=== PATIENT | female | born 2005 | race Caucasian/White ===

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

== ENCOUNTER 2025-10-12 01:25 | Emergency (ER) | payer BC, MEDICAID, SELFPAY ==
[2025-10-12 01:29] VITALS: BP 150/87; PULSE 87; RESP 18; TEMP 36.8; O2SAT 100; BMI 38.6
--- OUTSIDE RECORDS SUMMARY | 2025-10-12 01:32 | XMS_ITS | Encounter Summary ---
Author Organization [facility] Address [address] [place] [address] Care Team Providers Care Rotating Equipment Engineer Name Role Phone Erin William PROJECT DEVELOPMENT DIRECTOR Primary Care Provider [phone] Encounter Details Date Type Department Care Team (Latest Contact Info) Description 04/11/2007 Outpatient Historical [facility] Pediatrics-[place] [address] [place] [address] Db Saez MD [address] [place] [address] Vomiting Alone (Primary Dx) Social History Tobacco Use Types Packs/Day Years Used Date Smoking Tobacco: Never Assessed Comments Unknown Sex and Gender Information Value Date Recorded Sex Assigned at Not on file Legal Sex Female 5:39 AM CIAIO LUMITE INJECTOR Gender Identity Not on file Sexual Orientation Not on file documented as of this encounter Plan of Treatment Not on file documented as of this encounter Visit Diagnoses Diagnosis Vomiting alone- Primary documented in this encounter Care Teams Rotating Equipment Engineer Relationship Specialty Start Date End Date Erin William NP [address] [place] [address] PCP - General Nurse Practitioner Family 12/01/20 documented as of this encounter
--- OUTSIDE RECORDS SUMMARY | 2025-10-12 01:32 | XMS_ITS | Encounter Summary ---
Author Organization [facility] Address [address] [place] [address] Care Team Providers Care Junior Project Coordinator Name Role Phone Erin William CASTING MACHINE OPERATOR AUTOMATIC Primary Care Provider [phone] Encounter Details Date Type Department Care Team (Latest Contact Info) Description 06/14/2006 Outpatient Historical [facility] Pediatrics-[place] [address] [place] [address] Db Saez MD [address] [place] [address] Routine Child Health Exam (Primary Dx); Other Infants, Unspecified (Weight) Social History Tobacco Use Types Packs/Day Years Used Date Smoking Tobacco: Never Assessed Comments Unknown Sex and Gender Information Value Date Recorded Sex Assigned at Not on file Legal Sex Female 5:39 AM VENEER MATCHER Gender Identity Not on file Sexual Orientation Not on file documented as of this encounter Plan of Treatment Not on file documented as of this encounter Visit Diagnoses Diagnosis Routine child health exam- Primary Routine infant or child health check Other infants, unspecified (weight)(765.10) Other infants, unspecified (weight) documented in this encounter Care Teams Junior Project Coordinator Relationship Specialty Start Date End Date Erin William NP [address] [place] [address] PCP - General Nurse Practitioner Family 12/01/20 documented as of this encounter
--- OUTSIDE RECORDS SUMMARY | 2025-10-12 01:32 | XMS_ITS | Encounter Summary ---
Author Organization [facility] Address [address] [place] [address] Care Team Providers Care Diplomatic Interpreter Name Role Phone Erin William MARKET NEWS REPORTER Primary Care Provider [phone] Encounter Details Date Type Department Care Team (Latest Contact Info) Description 04/17/2006 Outpatient Historical [facility] Pediatrics-[place] [address] [place] [address] Db Saez MD [address] [place] [address] Unspecified Dacryocystitis (Primary Dx) Social History Tobacco Use Types Packs/Day Years Used Date Smoking Tobacco: Never Assessed Comments Unknown Sex and Gender Information Value Date Recorded Sex Assigned at Not on file Legal Sex Female 5:39 AM ELECTRICAL ENGINEERING INTERN Gender Identity Not on file Sexual Orientation Not on file documented as of this encounter Plan of Treatment Not on file documented as of this encounter Visit Diagnoses Diagnosis Dacryocystitis, unspecified- Primary documented in this encounter Care Teams Diplomatic Interpreter Relationship Specialty Start Date End Date Erin William NP [address] [place] [address] PCP - General Nurse Practitioner Family 12/01/20 documented as of this encounter
--- OUTSIDE RECORDS SUMMARY | 2025-10-12 01:32 | XMS_ITS | Encounter Summary ---
Author Organization [facility] Address [address] [place] [address] Care Team Providers Care District Administrator Name Role Phone Erin William GLASS VIAL FILLER Primary Care Provider Encounter Details Date Type Department Care Team (Latest Contact Info) Description 2005 Outpatient Historical [facility] [place] [address] [place] [address] Db Saez MD [address] [place] [address] Routine child health exam (Primary Dx); INFANT NEC WTNOS; BONE/SKIN NEOPLASM NOS; UNDIAGNOSED CARDIAC MURMURS Social History Tobacco Use Types Packs/Day Years Used Date Smoking Tobacco: Never Assessed Comments Unknown Sex and Gender Information Value Date Recorded Sex Assigned at Not on file Legal Sex Female 5:39 AM NETWORK CONTROL OPERATOR Gender Identity Not on file Sexual Orientation Not on file documented as of this encounter Plan of Treatment Not on file documented as of this encounter Visit Diagnoses Diagnosis Routine child health exam- Primary Routine or child health check Other infants, unspecified (weight)(765.10) Other infants, unspecified (weight) Neoplasm of unspecified nature of bone, soft tissue, and skin Undiagnosed cardiac murmurs documented in this encounter Care Teams District Administrator Relationship Specialty Start Date End Date Erin William NP [address] [place] [address] PCP - General Nurse Practitioner Family 12/01/20 documented as of this encounter
--- OUTSIDE RECORDS SUMMARY | 2025-10-12 01:32 | XMS_ITS | Encounter Summary ---
Author Organization [facility] Address [address] [place] [address] Care Team Providers Care Optometrist President/Practice Owner Name Role Phone Erin William FURNITURE MANAGER Primary Care Provider [phone] Encounter Details Date Type Department Care Team (Late st Contact Info) Description 10/15/2006 Outpatient Historical [facility] [address] [place] [address] Brock Wilkerson, DO [address] [place] [address] Unspecified Otitis Media (Primary Dx); Acute Upper Respiratory Infections of Unspecified Site Social History Tobacco Use Types Packs/Day Years Used Date Smoking Tobacco: Never Assessed Comments Unknown Sex and Gender Information Value Date Recorded Sex Assigned at Not on file Legal Sex Female 5:39 AM OXIDATION ENGINEER Gender Identity Not on file Sexual Orientation Not on file documented as of this encounter Plan of Treatment Not on file documented as of this encounter Visit Diagnoses Diagnosis Unspecified otitis media- Primary Acute upper respiratory infections of unspecified site documented in this encounter Care Teams Optometrist President/Practice Owner Relationship Specialty Start Date End Date Erin William NP [address] [place] [address] PCP - General Nurse Practitioner Family 12/01/20 documented as of this encounter
--- OUTSIDE RECORDS SUMMARY | 2025-10-12 01:32 | XMS_ITS | Encounter Summary ---
Author Organization [facility] Address [address] [place] [address] Care Team Providers Care Bee Producer Name Role Phone Erin William BUS PERSON DISHWASHER Primary Care Provider [phone] Encounter Details Date Type Department Care Team (Latest Contact Info) Description 2005 Outpatient Historical [facility] [place] [address] [place] [address] Brock Mckenna MD NO ADDRESS ON FILE ABDOMINAL PAIN UNSPEC SITE (Primary Dx) Social History Tobacco Use Types Packs/Day Years Used Date Smoking Tobacco: Never Assessed Comments Unknown Sex and Gender Information Value Date Recorded Sex Assigned at Not on file Legal Sex Female 5:39 AM WINDING DEPARTMENT SUPERVISOR Gender Identity Not on file Sexual Orientation Not on file documented as of this encounter Plan of Treatment Not on file documented as of this encounter Visit Diagnoses Diagnosis Abdominal pain, unspecified site- Primary documented in this encounter Care Teams Bee Producer Relationship Specialty Start Date End Date Erin William NP [address] [place] [address] PCP - General Nurse Practitioner Family 12/01/20 documented as of this encounter
--- OUTSIDE RECORDS SUMMARY | 2025-10-12 01:32 | XMS_ITS | Patient Health Record ---
Author Organization [facility] Address [address] [place] [address] Care Team Providers Care Service Electrician Name Role Phone Unknown, Unknown Primary Care Provider Unavailab le Allergies No Known Allergies Reason For Referral No Information Medications Medication SIG (Take, Route, Frequency, Duration) Notes Start Date End Date Status Percocet 10-325 MG Tablet 30-45 min prio r to yusef time in office and bring bottle to tx room Orally 2x a day; Duration: 1 days 10/31/2022 Active Peridex 0.12 % Solution 1/2 cap full- sw shala for 1 minute. DO NOT SWALLOW Mouth/Throat 2x daily; Duration: 7 days 1 bottle 02/01/2023 Active Percocet 10-325 MG Tablet Take one table t 30-45 minutes prior to procedure in clinic, bring bottle to treatment room. Orally twice; Duration: 1 day 11/07/2022 Active Xanax 1 MG Tablet 1 tablet 30-45 min p rior to yusef time in office and bring bottle to tx room 2x a day; Duration: 1 day 10/31/2022 Active Social History Sex Assigned At : Social History Observation Description Sex Assigned At Male Plan Of Treatment No Information Insurance Providers Payer Name Payer Address Payer Phone Subscriber Number Group Number Insured Name Patient Relationship to Insured Coverage Start Date Coverage End Date [employer] [address] [address] [place] [address] [id number] Amy Ayoub Self - patient is the insured [facility] [address] [place] [address] [id number] Amy Ayoub Self - patient is the insured
--- OUTSIDE RECORDS SUMMARY | 2025-10-12 01:32 | XMS_ITS | Encounter Summary ---
Author Organization [facility] Address [address] [place] [address] Care Team Providers Care Lead Ruby On Rails Developer Name Role Phone Erin William DIRECTOR OUTCOMES Primary Care Provider [phone] Encounter Details Date Type Department Care Team (Late st Contact Info) Description 01/08/2006 Outpatient Historical [facility] [place] [address] [place] [address] Grisel Damon MD [address] [place] [address] Acute nonsup otitis media (Primary Dx) Social History Tobacco Use Types Packs/Day Years Used Date Smoking Tobacco: Never Assessed Comments Unknown Sex and Gender Information Value Date Recorded Sex Assigned at Not on file Legal Sex Female 5:39 AM TRADE SALES ASSISTANT Gender Identity Not on file Sexual Orientation Not on file documented as of this encounter Plan of Treatment Not on file documented as of this encounter Visit Diagnoses Diagnosis Acute nonsup otitis media- Primary Acute nonsuppurative otitis media, unspecified documented in this encounter Care Teams Lead Ruby On Rails Developer Relationship Specialty Start Date End Date Erin William NP [address] [place] [address] PCP - General Nurse Practitioner Family 12/01/20 documented as of this encounter
--- OUTSIDE RECORDS SUMMARY | 2025-10-12 01:32 | XMS_ITS | Encounter Summary ---
Author Organization [facility] Address [address] [place] [address] Care Team Providers Care Violin Tutor Name Role Phone Erin William WOOD PREPARATION SUPERVISOR Primary Care Provider [phone] Encounter Details Date Type Department Care Team (Latest Contact Info) Description 2005 Outpatient Historical [facility] [place] [address] [place] [address] Db Saez MD [address] [place] [address] Routine child health exam (Primary Dx); DERMATITIS NOS; NASAL & SINUS DIS NEC; ALLERGIC RHINITIS NOS Social History Tobacco Use Types Packs/Day Years Used Date Smoking Tobacco: Never Assessed Comments Unknown Sex and Gender Information Value Date Recorded Sex Assigned at Not on file Legal Sex Female 5:39 AM FILTERING MACHINE TENDER HELPER Gender Identity Not on file Sexual Orientation Not on file documented as of this encounter Plan of Treatment Not on file documented as of this encounter Visit Diagnoses Diagnosis Routine child health exam- Primary Routine or child health check Contact dermatitis and other eczema, due to unspecified cause Nasal/sinus dis NEC Other diseases of nasal cavity and sinuses Allergic rhinitis, cause unspecified documented in this encounter Care Teams Violin Tutor Relationship Specialty Start Date End Date Erin William NP [address] [place] [address] PCP - General Nurse Practitioner Family 2/11/21 documented as of this encounter
--- OUTSIDE RECORDS SUMMARY | 2025-10-12 01:32 | XMS_ITS | Clinical Summary ---
Author Organization [facility] Address [address] [place]: Epic Prelude ADT [place] [address] Care Team Providers Care Stain Applicator Name Role Phone Erin William SPEECH COMMUNICATION INSTRUCTOR Primary Care Provider [phone] Allergies No known active allergies Medications cetirizine HCl (ZYRTEC ORAL) Take by mouth. 8 Active pseudoephedrine -Ibuprofen 30-200 mg Tablet Take 1 Tablet by mouth 1 time daily as needed. 7 Active multivitamin (DAILY-KEVIN) tablet Take 1 Tablet by mouth daily. 8 Active sodium chloride (AYR) 0.65 % DropsIndication s:Viral URI with cough Administer 4 Drops in each nostril every 2 hours as needed for Congestion. 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 Umbilical hernia without men tion of obstruction or gangrene 02/20/2009 Immunizations Immunization Administration Dates Next Due (GARDASIL)(9-45 YRS) HUMAN PAPILLOMAVIRUS VACCINE, TYPES 6, 11, 16, 18, QUADRIVALENT (4VHPV), 3 DOSE, IM 09/09/2017,02/11/2017 (INFANRIX)(6 WKS-6 YRS) DIPT HERIA, TETANUS TOXOIDS, AND ACCELLULAR PERTUSSIS VACCINE (DTAP), 0.5 ML IM 06/04/2011 (IPOL)(6 WKS AND UP) POLIOVI FOLR VACCINE, INACTIVATED (IPV), 3 DOSE, SUBCUT OR IM 06/04/2011 (M-M-R II/PRIORIX)(12 MO UP) MEASLES, MUMPS AND RUBELLA VIRUS VACCINE, 0.5 ML IM/SUBCUT 06/04/2011,09/09/2006 (VARIVAX)(12 MOS UP)VARICELL A VIRUS VACCINE (PF) 0.5 ML, SUB CUT 06/04/2011,09/09/2006 Dt Dtp Dtap Vaccine 01/03/2007, 6,01/15/2006,11/06 HIB, Unspecified Formulation 09/09/2006,01/16/20 06,2005 HPV Vaccine 3 Dose IM VFC 09/10/2016 Hepatitis A Vaccine 01/03/2007 Hepatitis A Vaccine Ped Adol IM 2 Dose VFC 02/18/2009 Hepatitis B Vaccine 03/08/2006, 6,2005,10/03 INFLUENZA VACCINE QUADRIVALE NT 3 YR UP PF IM 09/09/2017 IPV/OPV 03/08/2006,01/15/2006,2005 Influenza Seasonal Unspecifi ed Formulation IM 01/03/2007,11/15/2006 Meningococcal A Conjugate Va ccine IM VFC 09/10/2016 Pneumococcal 7-valent conjug ate vaccine IM 09/09/2006,03/08/2006,01/15/2006,11/06 Tdap Vaccine > 7 Yo IM VFC 09/10/2016 Family History Medical History Relation Name Comments GERD Maternal Grandfather Diabetes Maternal Grandmother Immunodeficiency Maternal Grandmother MS Anxiety Mother Jannine Other Mother Jannine PCOS High Cholesterol Paternal Grandfather Hypertension Paternal Grandfather Allergic Rhinitis Neg Hx Allergy-severe Neg Hx Asthma Neg Hx Chronic Sinusitis Neg Hx Cystic Fibrosis Neg Hx Depression Neg Hx Eczema Neg Hx Tuberculosis Neg Hx Relation Name Status Comments Father Deepak Posada Maternal Grandfather Maternal Grandmother Mother Lucius Paternal Grandfather Social History Tobacco Use Types Packs/Day Years Used Date Smoking Tobacco: Passive Smo ke Exposure - Never Smoker Smokeless Tobacco: Never Adolescent Education Answer Date Record ed Getting School Help Needed Not on file 05/30 Comments Unknown Sex and Gender Information Value Date Recorded Sex Assigned at Not on file Legal Sex Female 3:36 PM WIND FARM SUPPORT SPECIALIST Gender Identity Not on file Sexual Orientation Not on file Last Filed Vital Signs Vital Sign Reading Time Taken Comments Blood Pressure 128/61 01/27/2018 10:55 AM CDT Pulse 91 01/27/2018 10:55 AM CDT Temperature 37.6 C (99.6 F) 09/09/2017 3:16 PM WIND FARM SUPPORT SPECIALIST Respiratory Rate 18 01/27/2018 10:55 AM CDT Oxygen Saturation - - Inhaled Oxygen Concentration - - Weight 75.8 kg (167 lb 3.2 oz) 01/27/2018 10:55 AM CDT Height 160 cm (5' 3 ) 01/27/2018 10:55 AM CDT Body Mass Index 29.62 01/27/2018 10:55 AM CDT Plan of Treatment Health Maintenance Due Date Last Done Comments CHLAMYDIA SCREENING (ANNUAL) 11-24 YEARS 2016 INFLUENZA VACCINE (#1) 2025 7, 01/03/2007, 11/15/2006 DTAP/TDAP/TD VACCINES (7 - T d or Tdap) 09/10/2026 09/10/2016, 06/04/2011, 01/03/2007, Additional history exists HEPATITIS B VACCINES Completed 03/08/2006, 01/15/2006, 2005, Additional history exists HPV VACCINES Completed 09/09/2017, 01/20, 09/10/2016 [address] [place] [address] [facility] MEDICAID [facility] MEDICAID Care Teams Stain Applicator Relationship Specialty Start Date End Date Erin William NP [address] [place] [address] PCP - General Nurse Practitioner Family 12/01/20
--- OUTSIDE RECORDS SUMMARY | 2025-10-12 01:32 | XMS_ITS | Encounter Summary ---
Author Organization [facility] Address [address] [place] [address] Care Team Providers Care Finishing Department Supervisor Name Role Phone Erin William FEEDER TENDER Primary Care Provider [phone] Encounter Details Date Type Department Care Team (Latest Contact Info) Description 01/03/2007 Outpatient Historical [facility] Pediatrics-[place] [address] [place] [address] Db Saez MD [address] [place] [address] Routine Child Health Exam (Primary Dx) Social History Tobacco Use Types Packs/Day Years Used Date Smoking Tobacco: Never Assessed Comments Unknown Sex and Gender Information Value Date Recorded Sex Assigned at Not on file Legal Sex Female 5:39 AM CONSTRUCTION TRADES CONTRACTOR Gender Identity Not on file Sexual Orientation Not on file documented as of this encounter Plan of Treatment Not on file documented as of this encounter Visit Diagnoses Diagnosis Routine child health exam- Primary Routine or child health check documented in this encounter Care Teams Finishing Department Supervisor Relationship Specialty Start Date End Date Erin William NP [address] [place] [address] PCP - General Nurse Practitioner Family 12/01/20 documented as of this encounter
--- OUTSIDE RECORDS SUMMARY | 2025-10-12 01:32 | XMS_ITS | Encounter Summary ---
Author Organization [facility] Address [address] [place] [address] Care Team Providers Care Analytical Data Miner Name Role Phone Erin William INSULATION POWER UNIT TENDER Primary Care Provider [phone] Encounter Details Date Type Department Care Team (Latest Contact Info) Description 2005 Outpatient Historical [facility] [place] [address] [place] [address] Db Saez MD [address] [place] [address] ESOPHAGEAL REFLUX (Primary Dx); ACUTE URI NOS; DACRYOCYSTITIS NOS Social History Tobacco Use Types Packs/Day Years Used Date Smoking Tobacco: Never Assessed Comments Unknown Sex and Gender Information Value Date Recorded Sex Assigned at Not on file Legal Sex Female 5:39 AM FEATHER RENOVATOR Gender Identity Not on file Sexual Orientation Not on file documented as of this encounter Plan of Treatment Not on file documented as of this encounter Visit Diagnoses Diagnosis Esophageal reflux- Primary Acute upper respiratory infections of unspecified site Dacryocystitis, unspecified documented in this encounter Care Teams Analytical Data Miner Relationship Specialty Start Date End Date Erin William NP [address] [place] [address] PCP - General Nurse Practitioner Family 12/01/20 documented as of this encounter
--- OUTSIDE RECORDS SUMMARY | 2025-10-12 01:32 | XMS_ITS | Encounter Summary ---
Author Organization [facility] Address [address] [place] [address] Care Team Providers Care Rope Tow Operator Name Role Phone Erin William TELEPHOTO ENGINEER Primary Care Provider [phone] Encounter Details Date Type Department Care Team (Latest Contact Info) Description 03/02/2007 Outpatient Historical [facility] [place] [address] [place] [address] Brock Mckenna MD NO ADDRESS ON FILE Unspecified Otitis Media (Primary Dx) Social History Tobacco Use Types Packs/Day Years Used Date Smoking Tobacco: Never Assessed Comments Unknown Sex and Gender Information Value Date Recorded Sex Assigned at Not on file Legal Sex Female 5:39 AM VAC PRESS OPERATOR Gender Identity Not on file Sexual Orientation Not on file documented as of this encounter Plan of Treatment Not on file documented as of this encounter Visit Diagnoses Diagnosis Unspecified otitis media- Primary documented in this encounter Care Teams Rope Tow Operator Relationship Specialty Start Date End Date Erin William NP [address] [place] [address] PCP - General Nurse Practitioner Family 12/01/20 documented as of this encounter
--- OUTSIDE RECORDS SUMMARY | 2025-10-12 01:32 | XMS_ITS | Encounter Summary ---
Author Organization [facility] Address [address] [place] [address] Care Team Providers Care National Sales Consultant Name Role Phone Erin William BOX ANNEALER Primary Care Provider [phone] Encounter Details Date Type Department Care Team (Late st Contact Info) Description 03/15/2006 Outpatient Historical [facility] [address] [place] [address] Grisel Damon MD [address] [place] [phone] Acute Serous Otitis Media (Primary Dx) Social History Tobacco Use Types Packs/Day Years Used Date Smoking Tobacco: Never Assessed Comments Unknown Sex and Gender Information Value Date Recorded Sex Assigned at Not on file Legal Sex Female 5:39 AM WEB SEARCH EVALUATOR Gender Identity Not on file Sexual Orientation Not on file documented as of this encounter Plan of Treatment Not on file documented as of this encounter Visit Diagnoses Diagnosis Acute serous otitis media- Primary documented in this encounter Care Teams National Sales Consultant Relationship Specialty Start Date End Date Erin William NP [address] [place] [address] PCP - General Nurse Practitioner Family 12/01/20 documented as of this encounter
--- OUTSIDE RECORDS SUMMARY | 2025-10-12 01:32 | XMS_ITS | Encounter Summary ---
Author Organization [facility] Address [address] [place] [address] Care Team Providers Care Advertising Solicitor Name Role Phone Erin William DATA CONTROL CLERK Primary Care Provider [phone] Encounter Details Date Type Department Care Team (Latest Contact Info) Description 09/09/2006 Outpatient Historical [facility] [address] [place] [address] Db Saez MD [address] [place] [address] Routine Child Health Exam (Primary Dx); Acute Upper Respiratory Infections of Unspecified Site Social History Tobacco Use Types Packs/Day Years Used Date Smoking Tobacco: Never Assessed Comments Unknown Sex and Gender Information Value Date Recorded Sex Assigned at Not on file 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
--- OUTSIDE RECORDS SUMMARY | 2025-10-12 01:32 | XMS_ITS | Encounter Summary ---
Author Organization [facility] Address [address] [place] [address] Care Team Providers Care Armed Security Professional Name Role Phone Erin William BINDER AND BOX BUILDER Primary Care Provider [phone] Encounter Details Date Type Department Care Team (Latest Contact Info) Description 11/15/2006 Outpatient Historical [facility] [address] [place] [address] Db Saez MD [address] [place] [address] Unspecified Otalgia (Primary Dx); Feeding Problem; Vaccine for influenza Social History Tobacco Use Types Packs/Day Years Used Date Smoking Tobacco: Never Assessed Comments Unknown Sex and Gender Information Value Date Recorded Sex Assigned at Not on file 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
--- OUTSIDE RECORDS SUMMARY | 2025-10-12 01:32 | XMS_ITS | Encounter Summary ---
Author Organization [facility] Address [address] [place] [address] Care Team Providers Care Real Estate Closer Name Role Phone Erin William TEST CLERK Primary Care Provider [phone] Encounter Details Date Type Department Care Team (Late st Contact Info) Description 12/17/2007 Outpatient Historical [facility] [place] [address] [place] [address] Db Saez MD [address] [place] [address] Social History Tobacco Use Types Packs/Day Years Used Date Smoking Tobacco: Never Assessed Comments Unknown Sex and Gender Information Value Date Recorded Sex Assigned at Not on file 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 \\TEMP:97.1?? \par CC:Complaining of pain with urination since morning. She has not wanted to sit on thepotty chair and she said ???Ow?? when she would wipe. She woke up last night saying ???Ow?? and pulling at her diaper. She said ???Ow?? after she urinated today. She has been a little red and had stool one time per day that is normal. She has had no fever or vomiting. She had a runny stool last night. She has had no abdominal or back pain. \par MEDS:None. \par ALLERGIES:None. \par PHYSICAL EXAM:Alert and active.Eyes have full range of motion.No drainage.TM's are banegas.Nose is clear.Throat is non-erythematous.Neck is supple.No masses.Heart is regular rate and rhythm withoutmurmur.Lungs are clear to auscultation.Abdomen is soft and non-tender.No hepatosplenomegaly.Skin has moist mucous membranes. is normal. No erythema or drainage. \par ASSESSMENT AND PLAN:\ 1. Urethritis. Urinalysis is done today and is normal except for trace protein, trace leukocyte esterase. Culture is pending. Urethritis instructions given. Encouraged fluids. Call if not resolved. Db Saez M.D. Pediatrics - [facility] Electronically Signed by Db Saez M.D. 12/29/2007 07:00 , P, 555 Document #: [id number] cc: documented in this encounter Plan of Treatment Not on file documented as of this encounter Visit Diagnoses Not on filedocumented in this encounter Care Teams Real Estate Closer Relationship Specialty Start Date End Date Erin William NP [address] [place] [address] PCP - General Nurse Practitioner Family 12/01/20 documented as of this encounter
--- OUTSIDE RECORDS SUMMARY | 2025-10-12 01:32 | XMS_ITS | Encounter Summary ---
Author Organization [facility] Address [address] [place] [address] Care Team Providers Care Home Energy Consultant Name Role Phone Erin William BAGGAGE CHECKER Primary Care Provider Encounter Details Date Type Department Care Team (Latest Contact Info) Description 03/08/2006 Outpatient Historical [facility]-[place] [address] [place] [address] Db Saez MD [address] [place] [address] Routine Child Health Exam (Primary Dx); Other Infants, Unspecified (Weight) Social History Tobacco Use Types Packs/Day Years Used Date Smoking Tobacco: Never Assessed Comments Unknown Sex and Gender Information Value Date Recorded Sex Assigned at Not on file 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
--- OUTSIDE RECORDS SUMMARY | 2025-10-12 01:32 | XMS_ITS | Encounter Summary ---
Author Organization [facility] Address [address] [place] [address] Care Team Providers Care Post Splitter Name Role Phone Erin William CIVIL ENGINEERING PROJECT MANAGER Primary Care Provider [phone] Encounter Details Date Type Department Care Team (Latest Contact Info) Description 03/19/[address] 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
--- OUTSIDE RECORDS SUMMARY | 2025-10-12 01:32 | XMS_ITS | Clinical Summary ---
Author Organization [facility] Address [address] [facility] [place] [address] Care Team Providers Care Coat Checker Name Role Phone NataliiaErin Roseanne CONSUMER LOAN UNDERWRITER Primary Care Provider [phone] Allergies No known active allergies Medications sodium chloride (AYR SALINE) 0.65 % DropsIndication s:Viral URI with cough Administer 4 Drops in each nostril every 2 hours as needed for Congestion. 50 mL 0 6 Active pseudoephedrine -Ibuprofen (ADVIL COLD AND SINUS) 30-200 mg Tablet Take 1 Tablet by mouth 1 time daily as needed. Active multivitamin (DAILY-KEVIN) tablet Take 1 Tablet by mouth daily. Active CETIRIZINE HCL (ZYRTEC ORAL) Take by mouth. A ctive Active Problems Problem Noted Date Diagnosed Date Snoring n onpersistent 01/27/2018 Low HDL (under 40) 12/20/2017 Acanthosis nigricans 12/20/2017 Poor social situation 12/20/2017 Childhood obesity, BMI 95-100 percentile 016 Environmental tobacco smoke exposure 11/29/2015 Keratosis pilaris 02/20/2009 Resolved Problems Problem Noted Date Diagnosed Date Resolved Date Abnormal thyroid function test 09/26/2017 12/20/2017 Allergic rhinitis 06/12/2012 08/13/2016 Umbilical hernia 02/20/2009 08/13/2016 Constipation 02/20/2009 08/13/2016 Tibial torsion 02/20/2009 08/13/2016 Umbilical hernia without men tion of obstruction or gangrene 02/20/2009 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 Immunizations Immunization Administration Dates Next Due (GARDASIL)(9-45 YRS) HUMAN PAPILLOMAVIRUS VACCINE, TYPES 6, 11, 16, 18, QUADRIVALENT (4VHPV), 3 DOSE, IM 09/09/2017,02/11/2017 (INFANRIX)(6 WKS-6 YRS) DIPT HERIA, TETANUS TOXOIDS, AND ACCELLULAR PERTUSSIS VACCINE (DTAP), 0.5 ML IM 06/04/2011 (IPOL)(6 WKS AND UP) POLIOVI FLOR VACCINE, INACTIVATED (IPV), 3 DOSE, SUBCUT OR [...] Exposure - Never Smoker Smokeless Tobacco: Never Comments No Sex and Gender Information Value Date Recorded Sex Assigned at Not on file 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 Sex Female 5:39 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 Gender Identity Not on file Sexual Orientation Not on file Last Filed Vital Signs Vital Sign Reading Time Taken Comments Blood Pressure 128/61 01/27/2018 10:55 AM CDT Pulse 91 01/27/2018 10:55 AM CDT Temperature 37.6 C (99.6 F) 09/09/2017 3:16 PM PLASTIC JOINT MAKER Respiratory Rate 18 01/27/2018 10:55 AM CDT Oxygen Saturation 100% 01/27/2018 10:55 AM CDT RA Inhaled Oxygen Concentration - - Weight 75.8 [...] HPV VACCINES Completed 09/09/2017, 01/20, 09/10/2016 Insurance ([place]) [address] [place] [address] [facility] Care Teams Coat Checker Relationship Specialty Start Date End Date Erin William NP [address] [place] [address] PCP - General Nurse Practitioner Family 12/01/20
--- OUTSIDE RECORDS SUMMARY | 2025-10-12 01:32 | XMS_ITS | Encounter Summary ---
Author Organization [facility] Address [address] [place] [address] Care Team Providers Care Base Cloth Inspector Name Role Phone Erin William QUALITY LIAISON Primary Care Provider [phone] Encounter Details Date Type Department Care Team (Latest Contact Info) Description 03/26/2007 Outpatient Historical [facility] [place] [address] [place] [address] Melanie Hawk, DO [address] [address] Fever (Primary Dx) Social History Tobacco Use Types Packs/Day Years Used Date Smoking Tobacco: Never Assessed Comments Unknown Sex and Gender Information Value Date Recorded Sex Assigned at Not on file Legal Sex Female 5:39 AM PAPERHANGER SUPERVISOR Gender Identity Not on file Sexual Orientation Not on file documented as of this encounter Plan of Treatment Not on file documented as of this encounter Visit Diagnoses Diagnosis Fever and other physiologic disturbances of temperature regulation- Primary documented in this encounter Care Teams Base Cloth Inspector Relationship Specialty Start Date End Date Erin William, QUALITY LIAISON [address] [place] [address] PCP - General Nurse Practitioner Family 12/01/20 documented as of this encounter
--- OUTSIDE RECORDS SUMMARY | 2025-10-12 01:32 | XMS_ITS | Encounter Summary ---
Author Organization [facility] Address [address] [place]raden: Epic Prelude ADT SARANYA CORTEZ [id number] Care Team Providers Care Drill Sharpener Name Role Phone Erin William MANAGER DRILLING Primary Care Provider [phone] Encounter Details Date Type Department Care Team (Late st Contact Info) Description 2005 Inpatient Historical Abel Zimmerman MD [address] [place] [id number] [facility]IV[facility] (Primary Dx) Social History Tobacco Use Types Packs/Day Years Used Date Smoking Tobacco: Never Assessed Comments Unknown Sex and Gender Information Value Date Recorded Sex Assigned at Not on file Legal Sex Female 5:39 AM AUTOMATIC BEAM WARPER TENDER Gender Identity Not on file Sexual Orientation Not on file documented as of this encounter Plan of Treatment Not on file documented as of this encounter Procedures Procedure Name Priority Date/Time Associated Diagnosis Comments METABOLIC SCREEN Routine 2005 12:25 PM AUTOMATIC BEAM WARPER TENDER DIFFERENTIAL, MANUAL Routine 2005 3:55 AM AUTOMATIC BEAM WARPER TENDER CBC WITH DIFFERENTIAL Routine 2005 3:55 AM AUTOMATIC BEAM WARPER TENDER RETICULOCYTES Routine 2005 3:55 AM AUTOMATIC BEAM WARPER TENDER BASIC CHEM/BILI PROFILE Routine 2005 2:51 AM AUTOMATIC BEAM WARPER TENDER POC GLUCOSE Routine 2005 2:44 AM AUTOMATIC BEAM WARPER TENDER POC GLUCOSE Routine 2005 8:22 PM AUTOMATIC BEAM WARPER TENDER BASIC CHEM/BILI PROFILE Routine 2005 5:40 AM AUTOMATIC BEAM WARPER TENDER DIFFERENTIAL, MANUAL Routine 2005 5:40 AM AUTOMATIC BEAM WARPER TENDER CBC WITH DIFFERENTIAL Routine 2005 5:40 AM AUTOMATIC BEAM WARPER TENDER POC GLUCOSE Routine 2005 5:31 AM AUTOMATIC BEAM WARPER TENDER BASIC CHEM/BILI PROFILE Routine 2005 5:16 AM AUTOMATIC BEAM WARPER TENDER POC GLUCOSE Routine 2005 5:15 AM AUTOMATIC BEAM WARPER TENDER POC GLUCOSE Routine 2005 2:12 AM AUTOMATIC BEAM WARPER TENDER BASIC CHEM/BILI PROFILE Routine 2005 1:10 AM AUTOMATIC BEAM WARPER TENDER DIFFERENTIAL, MANUAL Routine 2005 1:10 AM AUTOMATIC BEAM WARPER TENDER CBC WITH DIFFERENTIAL Routine 2005 1:10 AM AUTOMATIC BEAM WARPER TENDER RETICULOCYTES Routine 2005 1:10 AM AUTOMATIC BEAM WARPER TENDER THEOPHYLLINE LEVEL Routine 2005 1: 10 AM AUTOMATIC BEAM WARPER TENDER BASIC CHEM/BILI PROFILE Routine 2005 5:16 AM AUTOMATIC BEAM WARPER TENDER DIFFERENTIAL, MANUAL Routine 2005 5:16 AM AUTOMATIC BEAM WARPER TENDER CBC WITH DIFFERENTIAL Routine 2005 5:16 AM AUTOMATIC BEAM WARPER TENDER POC GLUCOSE Routine 2005 5:04 AM AUTOMATIC BEAM WARPER TENDER C. DIFFICILE DETECTION Routine 12/03/200 5 9:48 AM AUTOMATIC BEAM WARPER TENDER ROTAVIRUS ANTIGEN Routine 2005 9:4 8 AM AUTOMATIC BEAM WARPER TENDER BASIC METABOLIC PANEL Routine 2005 5:14 AM AUTOMATIC BEAM WARPER TENDER DIFFERENTIAL, MANUAL Routine 2005 5:13 AM AUTOMATIC BEAM WARPER TENDER CBC WITH DIFFERENTIAL Routine 2005 5:13 AM AUTOMATIC BEAM WARPER TENDER RETICULOCYTES Routine 2005 5:13 AM AUTOMATIC BEAM WARPER TENDER THEOPHYLLINE LEVEL Routine 2005 5: 13 AM AUTOMATIC BEAM WARPER TENDER BASIC CHEM/BILI PROFILE Routine 2005 5:28 AM AUTOMATIC BEAM WARPER TENDER POC GLUCOSE Routine 2005 5:16 AM AUTOMATIC BEAM WARPER TENDER BASIC CHEM/BILI PROFILE Routine 2005 5:39 AM AUTOMATIC BEAM WARPER TENDER POC GLUCOSE Routine 2005 5:27 AM AUTOMATIC BEAM WARPER TENDER POC GLUCOSE Routine 2005 11:06 PM AUTOMATIC BEAM WARPER TENDER POC GLUCOSE Routine 2005 2:22 PM AUTOMATIC BEAM WARPER TENDER POC GLUCOSE Routine 2005 8:19 AM AUTOMATIC BEAM WARPER TENDER BASIC CHEM/BILI PROFILE Routine 2005 5:35 AM AUTOMATIC BEAM WARPER TENDER POC GLUCOSE Routine 2005 5:28 AM AUTOMATIC BEAM WARPER TENDER BASIC CHEM/BILI PROFILE Routine 2005 5:27 AM AUTOMATIC BEAM WARPER TENDER BASIC CHEM/BILI PROFILE Routine 2005 5:26 AM AUTOMATIC BEAM WARPER TENDER POC GLUCOSE Routine 2005 5:25 AM AUTOMATIC BEAM WARPER TENDER POC GLUCOSE Routine 2005 11:24 AM AUTOMATIC BEAM WARPER TENDER SCREEN, NEOGEN Routine 2005 10:30 AM AUTOMATIC BEAM WARPER TENDER METABOLIC SCREEN Routine 2005 10:30 AM AUTOMATIC BEAM WARPER TENDER POC GLUCOSE Routine 2005 5:32 AM AUTOMATIC BEAM WARPER TENDER BASIC CHEM/BILI PROFILE Routine 2005 5:24 AM AUTOMATIC BEAM WARPER TENDER DIFFERENTIAL, MANUAL Routine 2005 5:24 AM AUTOMATIC BEAM WARPER TENDER CBC WITH DIFFERENTIAL Routine 2005 5:24 AM AUTOMATIC BEAM WARPER TENDER THEOPHYLLINE LEVEL Routine 2005 5: 24 AM AUTOMATIC BEAM WARPER TENDER POC GLUCOSE Routine 2005 5:34 PM AUTOMATIC BEAM WARPER TENDER GENTAMICIN LEVEL TROUGH Routine 2005 11:49 AM AUTOMATIC BEAM WARPER TENDER DRUG SCREEN, MECONIUM Routine 2005 10:39 AM AUTOMATIC BEAM WARPER TENDER POC GLUCOSE Routine 2005 8:30 AM AUTOMATIC BEAM WARPER TENDER BASIC CHEM/BILI PROFILE Routine 2005 1:16 AM AUTOMATIC BEAM WARPER TENDER DIFFERENTIAL, MANUAL Routine 2005 1:16 AM AUTOMATIC BEAM WARPER TENDER CBC WITH DIFFERENTIAL Routine 2005 1:16 AM AUTOMATIC BEAM WARPER TENDER THEOPHYLLINE LEVEL Routine 2005 1: 16 AM AUTOMATIC BEAM WARPER TENDER POC GLUCOSE Routine 2005 1:06 AM AUTOMATIC BEAM WARPER TENDER POC GLUCOSE Routine 2005 5:32 PM AUTOMATIC BEAM WARPER TENDER POC GLUCOSE Routine 2005 12:59 PM AUTOMATIC BEAM WARPER TENDER POC GLUCOSE Routine 2005 10:14 AM AUTOMATIC BEAM WARPER TENDER BASIC CHEM/BILI PROFILE Routine 2005 4:47 AM AUTOMATIC BEAM WARPER TENDER DIFFERENTIAL, MANUAL Routine 2005 4:47 AM AUTOMATIC BEAM WARPER TENDER CBC WITH DIFFERENTIAL Routine 2005 4:47 AM AUTOMATIC BEAM WARPER TENDER POC GLUCOSE Routine 2005 4:38 AM AUTOMATIC BEAM WARPER TENDER POC GLUCOSE Routine 2005 11:13 PM AUTOMATIC BEAM WARPER TENDER POC GLUCOSE Routine 2005 9:58 PM AUTOMATIC BEAM WARPER TENDER POC GLUCOSE Routine 2005 7:56 PM AUTOMATIC BEAM WARPER TENDER POC GLUCOSE Routine 2005 4:35 PM AUTOMATIC BEAM WARPER TENDER DRUGS OF ABUSE PANEL 5 Routine 5 11:02 AM AUTOMATIC BEAM WARPER TENDER C-REACTIVE PROTEIN Routine 2005 10 :21 AM AUTOMATIC BEAM WARPER TENDER POC GLUCOSE Routine 2005 10:13 AM AUTOMATIC BEAM WARPER TENDER DIFFERENTIAL, MANUAL Routine 2005 6:12 AM AUTOMATIC BEAM WARPER TENDER CBC WITH DIFFERENTIAL Routine 2005 6:12 AM AUTOMATIC BEAM WARPER TENDER BASIC CHEM/BILI PROFILE Routine 2005 6:11 AM AUTOMATIC BEAM WARPER TENDER POC GLUCOSE Routine 2005 6:06 AM AUTOMATIC BEAM WARPER TENDER POC BLOOD GAS AND GLUCOSE Routine 2005 3:13 AM AUTOMATIC BEAM WARPER TENDER POC BLOOD GAS AND GLUCOSE Routine 2005 12:06 AM AUTOMATIC BEAM WARPER TENDER BASIC CHEM/BILI PROFILE Routine 2005 12:04 AM AUTOMATIC BEAM WARPER TENDER DIFFERENTIAL, MANUAL Routine 2005 12:04 AM AUTOMATIC BEAM WARPER TENDER CBC WITH DIFFERENTIAL Routine 2005 12:04 AM AUTOMATIC BEAM WARPER TENDER POC GLUCOSE Routine 2005 10:37 PM AUTOMATIC BEAM WARPER TENDER documented in this encounter Results * METABOLIC SCREEN (2005 12:25 PM AUTOMATIC BEAM WARPER TENDER) PKU Sent to Reference Lab INTERFACE SYSTEM 2005 12:2 5 PM AUTOMATIC BEAM WARPER TENDER us Abel Zimmerman MD CHEMISTRY ORDERABLES Final Result Performing Organization Address [facility] Phone Number INTERFACE SYSTEM Refer to clinic/hospital department * (ABNORMAL) DIFFERENTIAL, MANUAL (2005 3:55 AM AUTOMATIC BEAM WARPER TENDER) NEUTROPHILS, SEG 22 15 - 35 % INT ERFACE SYSTEM LYMPHOCYTES 51 41 - 71 % INTERFAC E SYSTEM MONOCYTE 10(H) 5 - 7 % INTERFACE SYSTEM EOSINOPHILS 15(H) 0 - 3 % INTERFAC E SYSTEM BASOPHILS 2(H) 0 - 1 % INTERFACE SYSTEM PLATELET EST. Increased (A) Normal INTERFACE SYSTEM RBC MORPHOLOGY Abnormal( A) Normal INTERFACE SYSTEM ANISOCYTOSIS 1+(A) None Seen INTERFA CE SYSTEM POLYCHROMASIA 1+(A) None Seen INTERF LAMBERTO SYSTEM 2005 3:55 AM AUTOMATIC BEAM WARPER TENDER us Abel Zimmerman MD HEMATOLOGY ORDERABLES COM Final Result Performing Organization Address [facility] Phone Number INTERFACE SYSTEM Refer to clinic/hospital department * RETICULOCYTES (2005 3:55 AM AUTOMATIC BEAM WARPER TENDER) RETICULOCYTES 1.4 0.5 - 1.5 % INTE RFACE SYSTEM 2005 3:55 AM AUTOMATIC BEAM WARPER TENDER us Abel Zimmerman MD HEMATOLOGY ORDERABLES Final Result Performing Organization Address [facility] de Phone Number INTERFACE SYSTEM Refer to clinic/hospital department * (ABNORMAL) CBC WITH DIFFERENTIAL (2005 3:55 AM AUTOMATIC BEAM WARPER TENDER) WBC 11.5 5.0 - 21.0 K/ul INTERFACE SYSTEM RBC 3.63 3.00 - 6.20 Mil/ul INTERFACE SYSTEM HEMOGLOBIN 12.6 12.2 - 16.0 g/dL INTERFACE SYSTEM HEMATOCRIT 35.8(L) 38.0 - 52.0 % INTERFACE SYSTEM MCV 98.6 95.0 - 118.0 Fl INTERFACE SYSTEM MCH 34.7 33.0 - 41.0 pg INTERFACE SYSTEM MCHC 35.2(H) 27.0 - 33.0 g/dL INTERFACE SYSTEM RDW 16.7(H) 11.0 - 14.5 % INTERFACE SYSTEM PLATELETS 376 140 - 440 K/ul INTERFACE SYSTEM MPV 11.9 8.9 - 12.8 Fl INTERFACE SYSTEM 2005 3:55 AM AUTOMATIC BEAM WARPER TENDER Abel Zimmerman MD HEMATOLOGY ORDERABLES Final Result INTERFACE SYSTEM Refer to clinic/hospital department * (ABNORMAL) PANEL 1 (2005 2:51 AM AUTOMATIC BEAM WARPER TENDER) TRIGLYCERIDE 38 0 - 158 mg/dL INTERFACE SYSTEM GLUCOSE 93 60 - 100 mg/dL INTERFACE SYSTEM BUN 6(L) 7 - 17 mg/dL INTERFACE SYSTEM CREATININE 0.4 0.2 - 0.7 mg/dL INTERFACE SYSTEM SODIUM 137 136 - 145 mEq/L INTERFACE SYSTEM POTASSIUM 3.9 3.5 - 5.0 mEq/L INTERFACE SYSTEM CO2 25 22 - 32 mmol/l INTERFACE SYSTEM CHLORIDE 106 95 - 110 mEq/L INTERFACE SYSTEM CALCIUM 9.6 8.4 - 10.5 mg/dL INTERFACE SYSTEM PHOSPHORUS 7.3 4.2 - 9.0 mg/dL INTERFACE SYSTEM MAGNESIUM 1.9 1.6 - 2.3 mg/dL INTERFACE SYSTEM ANION GAP 10 9 - 20 mEq/L INTERFACE SYSTEM OSMOLALITY, CALCULATED 279 275 - 295 mOsm/Kg INTERFACE SYSTEM 2005 2:51 AM AUTOMATIC BEAM WARPER TENDER us Abel Zimmerman MD CHEMISTRY ORDERABLES Final Result Performing Organization Address [facility] Phone Number INTERFACE SYSTEM Refer to clinic/hospital department * POC GLUCOSE (2005 2:44 AM AUTOMATIC BEAM WARPER TENDER) GLUCOSE POC 94 60 - 100 mg/dL INTERFACE SYSTEM 2005 2:44 AM AUTOMATIC BEAM WARPER TENDER us Abel Zimmerman MD POINT OF CARE TESTING Final Result Performing Organization Address [facility] Phone Number INTERFACE SYSTEM Refer to clinic/hospital department * (ABNORMAL) POC GLUCOSE (2005 8:22 PM AUTOMATIC BEAM WARPER TENDER) GLUCOSE POC 103(H) 60 - 100 mg/dL INTERFACE SYSTEM 2005 8:22 PM AUTOMATIC BEAM WARPER TENDER us Abel Zimmerman MD POINT OF CARE TESTING Final Result Performing Organization Address [facility] Phone Number INTERFACE SYSTEM Refer to clinic/hospital department * (ABNORMAL) DIFFERENTIAL, MANUAL (2005 5:40 AM AUTOMATIC BEAM WARPER TENDER) NEUTROPHILS, SEG 60(H) 15 - 35 % INT ERFACE SYSTEM BANDS 2(L) 5 - 10 % INTERFACE SYSTEM LYMPHOCYTES 24(L) 41 - 71 % INTERFAC E SYSTEM MONOCYTE 6 5 - 7 % INTERFACE SYSTEM EOSINOPHILS 8(H) 0 - 3 % INTERFAC E SYSTEM PLATELET EST. Increased (A) Normal INTERFACE SYSTEM RBC MORPHOLOGY Abnormal( A) Normal INTERFACE SYSTEM ANISOCYTOSIS 1+(A) None Seen INTERFA CE SYSTEM POIKILOCYTES 1+(A) None Seen INTERFA CE SYSTEM POLYCHROMASIA 1+(A) None Seen INTERF LAMBERTO SYSTEM 2005 5:40 AM AUTOMATIC BEAM WARPER TENDER us Abel Zimmerman MD HEMATOLOGY ORDERABLES COM Final Result Performing Organization Address [facility] Phone Number INTERFACE SYSTEM Refer to clinic/hospital department * PANEL 1 (2005 5:40 AM AUTOMATIC BEAM WARPER TENDER) TRIGLYCERIDE 47 0 - 158 mg/dL INTERFACE SYSTEM GLUCOSE 91 60 - 100 mg/dL INTERFACE SYSTEM BUN 9 7 - 17 mg/dL INTERFACE SYSTEM CREATININE 0.4 0.2 - 0.7 mg/dL INTERFACE SYSTEM SODIUM 137 136 - 145 mEq/L INTERFACE SYSTEM POTASSIUM 4.6 3.5 - 5.0 mEq/L INTERFACE SYSTEM Comment:Specimen moderately hemolyzed CO2 23 22 - 32 mmol/l INTERFACE SYSTEM CHLORIDE 108 95 - 110 mEq/L INTERFACE SYSTEM CALCIUM 9.6 8.4 - 10.5 mg/dL INTERFACE SYSTEM PHOSPHORUS 7.6 4.2 - 9.0 mg/dL INTERFACE SYSTEM MAGNESIUM 2.1 1.6 - 2.3 mg/dL INTERFACE SYSTEM ANION GAP 11 9 - 20 mEq/L INTERFACE SYSTEM OSMOLALITY, CALCULATED 282 275 - 295 mOsm/Kg INTERFACE SYSTEM 2005 5:40 AM AUTOMATIC BEAM WARPER TENDER Abel Zimmerman MD CHEMISTRY ORDERABLES Final Result Performing Organization Address [facility] Phone Number INTERFACE SYSTEM Refer to clinic/hospital department * (ABNORMAL) CBC WITH DIFFERENTIAL (2005 5:40 AM AUTOMATIC BEAM WARPER TENDER) WBC 17.2 5.0 - 21.0 K/ul INTERFACE SYSTEM RBC 3.91 3.00 - 6.20 Mil/ul INTERFACE SYSTEM HEMOGLOBIN 13.7 12.2 - 16.0 g/dL INTERFACE SYSTEM HEMATOCRIT 39.1 38.0 - 52.0 % INTERFACE SYSTEM MCV 100.0 95.0 - 118.0 Fl INTERFACE SYSTEM MCH 35.0 33.0 - 41.0 pg INTERFACE SYSTEM MCHC 35.0(H) 27.0 - 33.0 g/dL INTERFACE SYSTEM RDW 16.6(H) 11.0 - 14.5 % INTERFACE SYSTEM PLATELETS 357 140 - 440 K/ul INTERFACE SYSTEM MPV 12.2 8.9 - 12.8 Fl INTERFACE SYSTEM 2005 5:40 AM AUTOMATIC BEAM WARPER TENDER us Abel Zimmerman MD HEMATOLOGY ORDERABLES Final Result Performing Organization Address [facility] de Phone Number INTERFACE SYSTEM Refer to clinic/hospital department * (ABNORMAL) POC GLUCOSE (2005 5:31 AM AUTOMATIC BEAM WARPER TENDER) GLUCOSE POC 105(H) 60 - 100 mg/dL INTERFACE SYSTEM 2005 5:31 AM AUTOMATIC BEAM WARPER TENDER us Abel Zimmerman MD POINT OF CARE TESTING Final Result INTERFACE SYSTEM Refer to clinic/hospital department * (ABNORMAL) PANEL 1 (2005 5:16 AM AUTOMATIC BEAM WARPER TENDER) TRIGLYCERIDE 31 0 - 158 mg/dL INTERFACE SYSTEM GLUCOSE 87 60 - 100 mg/dL INTERFACE SYSTEM BUN 11 7 - 17 mg/dL INTERFACE SYSTEM CREATININE 0.4 0.2 - 0.7 mg/dL INTERFACE SYSTEM SODIUM 134(L) 136 - 145 mEq/L INTERFACE SYSTEM POTASSIUM 4.5 3.5 - 5.0 mEq/L INTERFACE SYSTEM Comment:Specimen slightly he molyzed CO2 22 22 - 32 mmol/l INTERFACE SYSTEM CHLORIDE 106 95 - 110 mEq/L INTERFACE SYSTEM CALCIUM 9.9 8.4 - 10.5 mg/dL INTERFACE SYSTEM PHOSPHORUS 7.1 4.2 - 9.0 mg/dL INTERFACE SYSTEM MAGNESIUM 1.9 1.6 - 2.3 mg/dL INTERFACE SYSTEM ANION GAP 11 9 - 20 mEq/L INTERFACE SYSTEM OSMOLALITY, CALCULATED 276 275 - 295 mOsm/Kg INTERFACE SYSTEM 2005 5:16 AM AUTOMATIC BEAM WARPER TENDER Abel Zimmerman MD CHEMISTRY ORDERABLES Final Result Performing Organization Address [facility] Co de Phone Number INTERFACE SYSTEM Refer to clinic/hospital department * POC GLUCOSE (2005 5:15 AM AUTOMATIC BEAM WARPER TENDER) GLUCOSE POC 86 60 - 100 mg/dL INTERFACE SYSTEM 2005 5:15 AM AUTOMATIC BEAM WARPER TENDER us Abel Zimmerman MD POINT OF CARE TESTING Final Result INTERFACE SYSTEM Refer to clinic/hospital department * POC GLUCOSE (2005 2:12 AM AUTOMATIC BEAM WARPER TENDER) GLUCOSE POC 99 60 - 100 mg/dL INTERFACE SYSTEM 2005 2:12 AM AUTOMATIC BEAM WARPER TENDER us Abel Zimmerman MD POINT OF CARE TESTING Final Result Performing Organization Address [facility] Phone Number INTERFACE SYSTEM Refer to clinic/hospital department * (ABNORMAL) PANEL 1 (2005 1:10 AM AUTOMATIC BEAM WARPER TENDER) Pathologist [facility] TRIGLYCERIDE 53 0 - 158 mg/dL INTERFACE SYSTEM GLUCOSE 95 60 - 100 mg/dL INTERFACE SYSTEM BUN 11 7 - 17 mg/dL INTERFACE SYSTEM CREATININE 0.4 0.2 - 0.7 mg/dL INTERFACE SYSTEM SODIUM 131(L) 136 - 145 mEq/L INTERFACE SYSTEM POTASSIUM 3.5 3.5 - 5.0 mEq/L INTERFACE SYSTEM CO2 22 22 - 32 mmol/l INTERFACE SYSTEM CHLORIDE 103 95 - 110 mEq/L INTERFACE SYSTEM CALCIUM 10.1 8.4 - 10.5 mg/dL INTERFACE SYSTEM PHOSPHORUS 6.5 4.2 - 9.0 mg/dL INTERFACE SYSTEM MAGNESIUM 1.9 1.6 - 2.3 mg/dL INTERFACE SYSTEM ANION GAP 10 9 - 20 mEq/L INTERFACE SYSTEM OSMOLALITY, CALCULATED 269(L) 275 - 295 mOsm/Kg INTERFACE SYSTEM 2005 1:10 AM AUTOMATIC BEAM WARPER TENDER us Abel Zimmerman MD CHEMISTRY ORDERABLES Final Result Performing Organization Address [facility] Phone Number INTERFACE SYSTEM Refer to clinic/hospital department * (ABNORMAL) DIFFERENTIAL, MANUAL (2005 1:10 AM AUTOMATIC BEAM WARPER TENDER) NEUTROPHILS, SEG 53(H) 15 - 35 % INT ERFACE SYSTEM BANDS 3(L) 5 - 10 % INTERFACE SYSTEM LYMPHOCYTES 30(L) 41 - 71 % INTERFAC E SYSTEM MONOCYTE 10(H) 5 - 7 % INTERFACE SYSTEM EOSINOPHILS 4(H) 0 - 3 % INTERFAC E SYSTEM PLATELET EST. Increased (A) Normal INTERFACE SYSTEM RBC MORPHOLOGY Abnormal( A) Normal INTERFACE SYSTEM ANISOCYTOSIS 1+(A) None Seen INTERFA CE SYSTEM POIKILOCYTES 1+(A) None Seen INTERFA CE SYSTEM POLYCHROMASIA 1+(A) None Seen INTERF LAMBERTO SYSTEM 2005 1:10 AM AUTOMATIC BEAM WARPER TENDER us Abel Zimmerman MD HEMATOLOGY ORDERABLES COM Final Result Performing Organization Address [facility] Co de Phone Number INTERFACE SYSTEM Refer to clinic/hospital department * (ABNORMAL) THEOPHYLLINE LEVEL (2005 1:10 AM AUTOMATIC BEAM WARPER TENDER) THEOPHYLLINE LEVEL 6.8(L) 10.0 - 20.0 mcg/mL INTERFACE SYSTEM 2005 1:10 AM AUTOMATIC BEAM WARPER TENDER us Abel Zimmerman MD CHEMISTRY ORDERABLES Final Result Performing Organization Address [facility] Phone Number INTERFACE SYSTEM Refer to clinic/hospital department * (ABNORMAL) CBC WITH DIFFERENTIAL (2005 1:10 AM AUTOMATIC BEAM WARPER TENDER) WBC 15.6 5.0 - 21.0 K/ul INTERFACE SYSTEM RBC 3.98 3.00 - 6.20 Mil/ul INTERFACE SYSTEM HEMOGLOBIN 13.9 12.2 - 16.0 g/dL INTERFACE SYSTEM HEMATOCRIT 41.8 38.0 - 52.0 % INTERFACE SYSTEM MCV 105.0 95.0 - 118.0 Fl INTERFACE SYSTEM MCH 34.9 33.0 - 41.0 pg INTERFACE SYSTEM MCHC 33.3(H) 27.0 - 33.0 g/dL INTERFACE SYSTEM RDW 16.9(H) 11.0 - 14.5 % INTERFACE SYSTEM PLATELETS 513(H) 140 - 440 K/ul INTERFACE SYSTEM MPV 12.0 8.9 - 12.8 Fl INTERFACE SYSTEM NEUTROPHILS 54.1 42.2 - 75.2 % INTERFACE SYSTEM LYMPHOCYTES 32.7(L) 41.0 - 71.0 % INTERFACE SYSTEM MONOCYTES 7.1(H) 6.0 - 7.0 % INTERFACE SYSTEM EOSINOPHILS 5.9 0.0 - 7.0 % INTERFACE SYSTEM BASOPHILS 0.2 0.0 - 1.0 % INTERFACE SYSTEM NEUTROPHIL ABSOLUTE 8.5(H) 2.0 - 8.0 K/uL INTERFACE SYSTEM LYMPHOCYTE ABSOLUTE 5.1(H) 1.2 - 4.0 K/ul INTERFACE SYSTEM MONOCYTE ABSOLUTE 1.1(H) 0.1 - 0.6 K/ul INTERFACE SYSTEM EOSINOPHIL ABSOLUTE 0.9(H) 0.0 - 0.7 K/ul INTERFACE SYSTEM BASOPHILS ABSOLUTE 0.0 0.0 - 0.2 K/ul INTERFACE SYSTEM 2005 1:10 AM AUTOMATIC BEAM WARPER TENDER Abel Zimmerman MD HEMATOLOGY ORDERABLES Final Result Performing Organization Address [facility] Phone Number INTERFACE SYSTEM Refer to clinic/hospital department * (ABNORMAL) RETICULOCYTES (2005 1:10 AM AUTOMATIC BEAM WARPER TENDER) RETICULOCYTES 1.9(H) 0.5 - 1.5 % INTERFACE SYSTEM 2005 1:10 AM AUTOMATIC BEAM WARPER TENDER Abel Zimmerman MD HEMATOLOGY ORDERABLES Final Result Performing Organization Address [facility] Phone Number INTERFACE SYSTEM Refer to clinic/hospital department * (ABNORMAL) DIFFERENTIAL, MANUAL (2005 5:16 AM AUTOMATIC BEAM WARPER TENDER) NEUTROPHILS, SEG 43(H) 15 - 35 % INT ERFACE SYSTEM LYMPHOCYTES 39(L) 41 - 71 % INTERFAC E SYSTEM MONOCYTE 12(H) 5 - 7 % INTERFACE SYSTEM EOSINOPHILS 6(H) 0 - 3 % INTERFAC E SYSTEM PLATELET EST. Normal Normal INTERF LAMBERTO SYSTEM RBC MORPHOLOGY Normal Normal INTER FACE SYSTEM 2005 5:16 AM AUTOMATIC BEAM WARPER TENDER Abel Zimmerman MD HEMATOLOGY ORDERABLES COM Final Result Performing Organization Address [facility] de Phone Number INTERFACE SYSTEM Refer to clinic/hospital department * (ABNORMAL) CBC WITH DIFFERENTIAL (2005 5:16 AM AUTOMATIC BEAM WARPER TENDER) WBC 16.2 5.0 - 21.0 K/ul INTERFACE SYSTEM RBC 4.59 3.00 - 6.20 Mil/ul INTERFACE SYSTEM HEMOGLOBIN 16.3(H) 12.2 - 16.0 g/dL INTERFACE SYSTEM HEMATOCRIT 46.4 38.0 - 52.0 % INTERFACE SYSTEM MCV 101.1 95.0 - 118.0 Fl INTERFACE SYSTEM MCH 35.5 33.0 - 41.0 pg INTERFACE SYSTEM MCHC 35.1(H) 27.0 - 33.0 g/dL INTERFACE SYSTEM RDW 16.7(H) 11.0 - 14.5 % INTERFACE SYSTEM PLATELETS 361 140 - 440 K/ul INTERFACE SYSTEM MPV 13.0(H) 8.9 - 12.8 Fl INTERFACE SYSTEM 2005 5:16 AM AUTOMATIC BEAM WARPER TENDER Abel Zimmerman MD HEMATOLOGY ORDERABLES Final Result Performing Organization Address [facility] Co de Phone Number INTERFACE SYSTEM Refer to clinic/hospital department * (ABNORMAL) PANEL 1 (2005 5:16 AM AUTOMATIC BEAM WARPER TENDER) TRIGLYCERIDE 48 0 - 158 mg/dL INTERFACE SYSTEM GLUCOSE 68 60 - 100 mg/dL INTERFACE SYSTEM BUN 8 7 - 17 mg/dL INTERFACE SYSTEM CREATININE 0.4 0.2 - 0.7 mg/dL INTERFACE SYSTEM SODIUM 136 136 - 145 mEq/L INTERFACE SYSTEM POTASSIUM 6.0(H) 3.5 - 5.0 mEq/L INTERFACE SYSTEM Comment:Specimen moderately hemolyzed CO2 17(L) 22 - 32 mmol/l INTERFACE SYSTEM CHLORIDE 110 95 - 110 mEq/L INTERFACE SYSTEM CALCIUM 10.5 8.4 - 10.5 mg/dL INTERFACE SYSTEM PHOSPHORUS 8.3 4.2 - 9.0 mg/dL INTERFACE SYSTEM MAGNESIUM 2.1 1.6 - 2.3 mg/dL INTERFACE SYSTEM ANION GAP 15 9 - 20 mEq/L INTERFACE SYSTEM OSMOLALITY, CALCULATED 281 275 - 295 mOsm/Kg INTERFACE SYSTEM 2005 5:16 AM AUTOMATIC BEAM WARPER TENDER us Abel Zimmerman MD CHEMISTRY ORDERABLES Final Result INTERFACE SYSTEM Refer to clinic/hospital department * POC GLUCOSE (2005 5:04 AM AUTOMATIC BEAM WARPER TENDER) GLUCOSE POC 74 60 - 100 mg/dL INTERFACE SYSTEM 2005 5:04 AM AUTOMATIC BEAM WARPER TENDER Abel Zimmerman MD POINT OF CARE TESTING Final Result Performing Organization Address [facility] de Phone Number INTERFACE SYSTEM Refer to clinic/hospital department * ROTAVIRUS ANTIGEN (2005 9:48 AM AUTOMATIC BEAM WARPER TENDER) ROTAVIRUS AG, STOOL Negative Negative INTERFACE SYSTEM 2005 9:48 AM AUTOMATIC BEAM WARPER TENDER Ria Spencer MD BODY FLUIDS AND STOOLS Karly l Result Performing Organization Address [facility] de Phone Number INTERFACE SYSTEM Refer to clinic/hospital department * CLOSTRIDIUM DIFFICILE TOXIN (2005 9:48 AM AUTOMATIC BEAM WARPER TENDER) C DIFFICILE TOXIN Negative Negative INTERFACE SYSTEM 2005 9:48 AM AUTOMATIC BEAM WARPER TENDER Ria Spencer MD MICROBIOLOGY - [facility]AL [facility] Final Result Performing Organization Address [facility] de Phone Number INTERFACE SYSTEM Refer to clinic/hospital department * (ABNORMAL) BASIC METABOLIC PANEL (2005 5:14 AM AUTOMATIC BEAM WARPER TENDER) GLUCOSE 67 60 - 100 mg/dL INTERFACE SYSTEM BUN 11 7 - 17 mg/dL INTERFACE SYSTEM CREATININE 0.4 0.2 - 0.7 mg/dL INTERFACE SYSTEM CHLORIDE 97 95 - 110 mEq/L INTERFACE SYSTEM ANION GAP 19 9 - 20 mEq/L INTERFACE SYSTEM OSMOLALITY, CALCULATED 272(L) 275 - 295 mOsm/Kg INTERFACE SYSTEM CALCIUM 11.4(H) 8.4 - 10.5 mg/dL INTERFACE SYSTEM SODIUM 131(L) 136 - 145 mEq/L INTERFACE SYSTEM POTASSIUM 5.5(H) 3.5 - 5.0 mEq/L INTERFACE SYSTEM CO2 21(L) 22 - 32 mmol/l INTERFACE SYSTEM 2005 5:14 AM AUTOMATIC BEAM WARPER TENDER Abel Zimmerman MD CHEMISTRY ORDERABLES Final Result Performing Organization Address [facility] Phone Number INTERFACE SYSTEM Refer to clinic/hospital department * (ABNORMAL) DIFFERENTIAL, MANUAL (2005 5:13 AM AUTOMATIC BEAM WARPER TENDER) NEUTROPHILS, SEG 28 15 - 35 % INT ERFACE SYSTEM BANDS 1(L) 6 - 15 % INTERFACE SYSTEM LYMPHOCYTES 43 43 - 53 % INTERFAC E SYSTEM MONOCYTE 25(H) 8 - 9 % INTERFACE SYSTEM EOSINOPHILS 2 0 - 3 % INTERFAC E SYSTEM MYELOCYTES 1 <=1 % INTERFACE SYSTEM PLATELET EST. Normal Normal INTERF LAMBERTO SYSTEM RBC MORPHOLOGY Abnormal(A ) Normal INTERFACE SYSTEM ANISOCYTOSIS 1+(A) None Seen INTERFA CE SYSTEM POIKILOCYTES 1+(A) None Seen INTERFA CE SYSTEM POLYCHROMASIA Present(A) None Seen INTER FACE SYSTEM 2005 5:13 AM AUTOMATIC BEAM [employer]AR[employer]END[employer] Abel Zimmerman MD HEMATOLOGY ORDERABLES COM Final Result Performing Organization Address [facility] Phone Number INTERFACE SYSTEM Refer to clinic/hospital department * (ABNORMAL) CBC WITH DIFFERENTIAL (2005 5:13 AM AUTOMATIC BEAM WARPER TENDER) WBC 11.8 9.4 - 34.0 K/ul INTERFACE SYSTEM RBC 4.68 3.00 - 6.20 Mil/ul INTERFACE SYSTEM HEMOGLOBIN 16.9(H) 12.2 - 16.0 g/dL INTERFACE SYSTEM HEMATOCRIT 50.0 38.0 - 52.0 % INTERFACE SYSTEM MCV 106.8 95.0 - 118.0 Fl INTERFACE SYSTEM MCH 36.1 31.0 - 37.0 pg INTERFACE SYSTEM MCHC 33.8 31.0 - 37.0 g/dL INTERFACE SYSTEM RDW 17.2(H) 11.0 - 14.5 % INTERFACE SYSTEM PLATELETS 224 140 - 440 K/ul INTERFACE SYSTEM MPV 13.0(H) 8.9 - 12.8 Fl INTERFACE SYSTEM 2005 5:13 AM AUTOMAT[employer] BE[employer] Abel Zimmerman MD HEMATOLOGY ORDERABLES Final Result Performing Organization Address [facility] Phone Number INTERFACE SYSTEM Refer to clinic/hospital department * RETICULOCYTES (2005 5:13 AM AUTOMATIC BEAM WARPER TENDER) RETICULOCYTES 1.5 0.5 - 1.5 % INTE RFACE SYSTEM 2005 5:13 AM AUTOMATIC BEAM [employer]ARPER T[employer] us Abel Zimmerman MD HEMATOLOGY ORDERABLES Final Result Performing Organization Address City/[facility]/ZIP Co de Phone Number INTERFACE SYSTEM Refer to clinic/hospital department * (ABNORMAL) THEOPHYLLINE LEVEL (2005 5:13 AM AUTOMATIC BEAM W[employer] TENDER) THEOPHYLLINE LEVEL 8.7(L) 10.0 - 20.0 mcg/mL INTERFACE SYSTEM 2005 5:13 AM AUTOMATIC BE[employer] T[employer]ER Abel Zimmerman MD CHEMISTRY ORDERABLES Final Result Performing Organization Address [facility] de Phone Number INTERFACE SYSTEM Refer to clinic/hospital department * (ABNORMAL) PANEL 1 (2005 5:28 AM AUTOMATIC BEAM [employer] TENDER) TRIGLYCERIDE 108 0 - 158 mg/dL INTERFACE SYSTEM GLUCOSE 68 60 - 100 mg/dL INTERFACE SYSTEM BUN 5(L) 7 - 17 mg/dL INTERFACE SYSTEM CREATININE 0.4 0.2 - 0.7 mg/dL INTERFACE SYSTEM SODIUM 130(L) 136 - 145 mEq/L INTERFACE SYSTEM POTASSIUM 5.6(H) 3.5 - 5.0 mEq/L INTERFACE SYSTEM Comment:Specimen moderately hemolyzed CO2 21(L) 22 - 32 mmol/l INTERFACE SYSTEM CHLORIDE 101 95 - 110 mEq/L INTERFACE SYSTEM CALCIUM 10.8(H) 8.4 - 10.5 mg/dL INTERFACE SYSTEM PHOSPHORUS 6.8 4.2 - 9.0 mg/dL INTERFACE SYSTEM MAGNESIUM 2.0 1.6 - 2.3 mg/dL INTERFACE SYSTEM ANION GAP 14 9 - 20 mEq/L INTERFACE SYSTEM OSMOLALITY, CALCULATED 268(L) 275 - 295 mOsm/Kg INTERFACE SYSTEM 2005 5:2 8 AM AUTOMATIC BE[employer] us Abel Zimmerman MD CHEMISTRY ORDERABLES Final Result Performing Organization Address [facility]/ZIP Co de Phone Number INTERFACE SYSTEM Refer to clinic/hospital department * POC GLUCOSE (2005 5:16 AM AUTOMATIC BEAM W[employer] TENDER) GLUCOSE POC 83 60 - 100 mg/dL INTERFACE SYSTEM 2005 5:16 AM AUTOMATIC BEAM WARPER TENDER us Abel Zimmerman MD POINT OF CARE TESTING Final Result Performing Organization Address [facility] de Phone Number INTERFACE SYSTEM Refer to clinic/hospital department * (ABNORMAL) PANEL 1 (2005 5:39 AM AUTOMATIC BEAM W[employer]ENDER) TRIGLYCERIDE 172(H) 0 - 158 mg/dL INTERFACE SYSTEM GLUCOSE 75 60 - 100 mg/dL INTERFACE SYSTEM BUN 5(L) 7 - 17 mg/dL INTERFACE SYSTEM CREATININE 0.5 0.2 - 0.7 mg/dL INTERFACE SYSTEM SODIUM 137 136 - 145 mEq/L INTERFACE SYSTEM CO2 22 22 - 32 mmol/l INTERFACE SYSTEM CHLORIDE 106 95 - 110 mEq/L INTERFACE SYSTEM PHOSPHORUS 6.4 4.2 - 9.0 mg/dL INTERFACE SYSTEM ANION GAP 14 9 - 20 mEq/L INTERFACE SYSTEM OSMOLALITY, CALCULATED 280 275 - 295 mOsm/Kg INTERFACE SYSTEM POTASSIUM 5.1(H) 3.5 - 5.0 mEq/L INTERFACE SYSTEM Comment:2nd specimen drawn a t [id number] CALCIUM 11.0(H) 8.4 - 10.5 mg/dL INTERFACE SYSTEM MAGNESIUM 2.1 1.6 - 2.3 mg/dL INTERFACE SYSTEM 2005 5:39 AM AUTOMATIC BE[employer] us Abel Zimmerman MD CHEMISTRY ORDERABLES Final Result Performing Organization Address [facility] de Phone Number INTERFACE SYSTEM Refer to clinic/hospital department * POC GLUCOSE (2005 5:27 AM AUTOMATIC BEAM WARPER TENDER) GLUCOSE POC 84 60 - 100 mg/dL INTERFACE SYSTEM 2005 5:27 AM AUTOMATIC BEAM WAR[employer] T[employer]ER us Abel Zimmerman MD POINT OF CARE TESTING Final Result Performing Organization Address [facility] de Phone Number INTERFACE SYSTEM Refer to clinic/hospital department * POC GLUCOSE (2005 11:06 PM AUTOMATIC BEAM WARPER TENDER) GLUCOSE POC 76 60 - 100 mg/dL INTERFACE SYSTEM 2005 11:0 6 PM AUTOMATIC BE[employer] WARPER T[employer]ER us Abel Zimmerman MD POINT OF CARE TESTING Final Result Performing Organization Address [facility] de Phone Number INTERFACE SYSTEM Refer to clinic/hospital department * (ABNORMAL) POC GLUCOSE (2005 2:22 PM AUTOMATIC BEAM WARPER TENDER) GLUCOSE POC 101(H) 60 - 100 mg/dL INTERFACE SYSTEM 2005 2:22 PM AUTOMATIC BEAM WARPER TENDER us Abel Zimmerman MD POINT OF CARE TESTING Final Result Performing Organization Address [facility] Phone Number INTERFACE SYSTEM Refer to clinic/hospital department * POC GLUCOSE (2005 8:19 AM AUTOMATIC BEAM WARPER TENDER) GLUCOSE POC 79 60 - 100 mg/dL INTERFACE SYSTEM 2005 8:19 AM AUTOMATIC BEAM WAR[employer]ER us Abel Zimmerman MD POINT OF CARE TESTING Final Result Performing Organization Address [facility] Phone Number INTERFACE SYSTEM Refer to clinic/hospital department * (ABNORMAL) PANEL 1 (2005 5:35 AM AUTOMATIC BEAM WAR[employer] TENDER) TRIGLYCERIDE 116 0 - 158 mg/dL INTERFACE SYSTEM GLUCOSE 72 60 - 100 mg/dL INTERFACE SYSTEM BUN 5(L) 7 - 17 mg/dL INTERFACE SYSTEM CREATININE 0.5 0.2 - 0.7 mg/dL INTERFACE SYSTEM SODIUM 132(L) 136 - 145 mEq/L INTERFACE SYSTEM POTASSIUM 5.4(H) 3.5 - 5.0 mEq/L INTERFACE SYSTEM CO2 22 22 - 32 mmol/l INTERFACE SYSTEM CHLORIDE 102 95 - 110 mEq/L INTERFACE SYSTEM CALCIUM 10.4 8.4 - 10.5 mg/dL INTERFACE SYSTEM PHOSPHORUS 6.4 4.2 - 9.0 mg/dL INTERFACE SYSTEM MAGNESIUM 2.1 1.6 - 2.3 mg/dL INTERFACE SYSTEM ANION GAP 13 9 - 20 mEq/L INTERFACE SYSTEM OSMOLALITY, CALCULATED 271(L) 275 - 295 mOsm/Kg INTERFACE SYSTEM 2005 5:35 AM AUTOMATIC [employer] us Abel Zimmerman MD CHEMISTRY ORDERABLES Final Result Performing Organization Address [facility] de Phone Number INTERFACE SYSTEM Refer to clinic/hospital department * (ABNORMAL) POC GLUCOSE (2005 5:28 AM AUTOMATIC BEAM WARPER TENDER) GLUCOSE POC 98(H) 50 - 80 mg/dL INTERFACE SYSTEM 2005 5:28 AM AUTOMATIC BEAM WARPER TENDER Result Diamante Zimmerman MD POINT OF CARE TESTING Final Result Performing Organization Address [facility] Phone Number INTERFACE SYSTEM Refer to clinic/hospital department * (ABNORMAL) PANEL 1 (2005 5:27 AM AUTOMATIC BEAM WAR[employer]ENDER) TRIGLYCERIDE 84 0 - 158 mg/dL INTERFACE SYSTEM GLUCOSE 89(H) 50 - 80 mg/dL INTERFACE SYSTEM BUN 6(L) 7 - 17 mg/dL INTERFACE SYSTEM CREATININE 0.5 0.2 - 0.7 mg/dL INTERFACE SYSTEM SODIUM 133(L) 136 - 145 mEq/L INTERFACE SYSTEM POTASSIUM 4.5 3.5 - 5.0 mEq/L INTERFACE SYSTEM Comment:Specimen slightly he molyzed CO2 23 22 - 32 mmol/l INTERFACE SYSTEM CHLORIDE 102 95 - 110 mEq/L INTERFACE SYSTEM CALCIUM 10.6(H) 8.4 - 10.5 mg/dL INTERFACE SYSTEM PHOSPHORUS 6.2 4.2 - 9.0 mg/dL INTERFACE SYSTEM MAGNESIUM 2.3 1.6 - 2.3 mg/dL INTERFACE SYSTEM ANION GAP 13 9 - 20 mEq/L INTERFACE SYSTEM OSMOLALITY, CALCULATED 273(L) 275 - 295 mOsm/Kg INTERFACE SYSTEM 2005 5:27 AM AUTOMATIC BEAM WARPER TENDER Result Diamante Zimmerman MD CHEMISTRY ORDERABLES Final Result Performing Organization Address [facility] Phone Number INTERFACE SYSTEM Refer to clinic/hospital department * (ABNORMAL) PANEL 1 (2005 5:26 AM AUTOMATIC BEAM WAR[employer] TENDER) TRIGLYCERIDE 72 0 - 158 mg/dL INTERFACE SYSTEM GLUCOSE 107(H) 50 - 80 mg/dL INTERFACE SYSTEM BUN 9 7 - 17 mg/dL INTERFACE SYSTEM CREATININE 0.5 0.2 - 0.7 mg/dL INTERFACE SYSTEM SODIUM 131(L) 136 - 145 mEq/L INTERFACE SYSTEM POTASSIUM 5.0 3.5 - 5.0 mEq/L INTERFACE SYSTEM Comment:Specimen moderately hemolyzed CO2 23 22 - 32 mmol/l INTERFACE SYSTEM CHLORIDE 101 95 - 110 mEq/L INTERFACE SYSTEM CALCIUM 10.3 8.4 - 10.5 mg/dL INTERFACE SYSTEM PHOSPHORUS 6.1 4.2 - 9.0 mg/dL INTERFACE SYSTEM MAGNESIUM 2.1 1.6 - 2.3 mg/dL INTERFACE SYSTEM ANION GAP 12 9 - 20 mEq/L INTERFACE SYSTEM OSMOLALITY, CALCULATED 272(L) 275 - 295 mOsm/Kg INTERFACE SYSTEM 2005 5:26 AM AUTOMATIC BE[employer] W[employer] T[employer] us Abel Zimmerman MD CHEMISTRY ORDERABLES Final Result Performing Organization Address [facility] Phone Number INTERFACE SYSTEM Refer to clinic/hospital department * (ABNORMAL) POC GLUCOSE (2005 5:25 AM AUTOMATIC BEAM WARPER TENDER) GLUCOSE POC 109(H) 50 - 80 mg/dL INTERFACE SYSTEM 2005 5:25 AM AUTOMATIC BEAM WARPER TENDER us Abel Zimmerman MD POINT OF CARE TESTING Final Result Performing Organization Address [facility] de Phone Number INTERFACE SYSTEM Refer to clinic/hospital department * (ABNORMAL) POC GLUCOSE (2005 11:24 AM AUTOMATIC BEAM WARPER TENDER) GLUCOSE POC 109(H) 50 - 80 mg/dL INTERFACE SYSTEM 2005 11:2 4 AM AUTOMATIC BEAM WARPER TENDER us Abel Zimmerman MD POINT OF CARE TESTING Final Result Performing Organization Address [facility] Phone Number INTERFACE SYSTEM Refer to clinic/hospital department * SCREEN, NEOGEN (2005 10:30 AM AUTOMATIC BEAM WARPER TENDER) SCREEN, NEOGEN Sent to Reference Lab INTERFACE SYSTEM 2005 10:3 0 AM AUTOMATIC BEAM WARPER TENDER us Abel Zimmerman MD CHEMISTRY ORDERABLES Final Result Performing Organization Address [facility] Phone Number INTERFACE SYSTEM Refer to clinic/hospital department * METABOLIC SCREEN (2005 10:30 AM AUTOMATIC BEAM WARPER TENDER) PKU Sent to Reference Lab INTERFACE SYSTEM 2005 10:3 0 AM AUTOMATIC BEAM WARPER TENDER us Abel Zimmerman MD CHEMISTRY ORDERABLES Final Result Performing Organization Address [facility] Phone Number INTERFACE SYSTEM Refer to clinic/hospital department * (ABNORMAL) POC GLUCOSE (2005 5:32 AM AUTOMATIC BEAM WARPER TENDER) GLUCOSE POC 125(H) 50 - 80 mg/dL INTERFACE SYSTEM 2005 5:32 AM AUTOMATIC BEAM WARPER TENDER Result Diamante Zimmerman MD POINT OF CARE TESTING Final Result Performing Organization Address [facility] Phone Number INTERFACE SYSTEM Refer to clinic/hospital department * (ABNORMAL) DIFFERENTIAL, MANUAL (2005 5:24 AM AUTOMATIC BEAM WARPER TENDER) NEUTROPHILS, SEG 39(H) 15 - 35 % INT ERFACE SYSTEM LYMPHOCYTES 42(L) 43 - 53 % INTERFAC E SYSTEM MONOCYTE 16(H) 8 - 9 % INTERFACE SYSTEM EOSINOPHILS 3 0 - 3 % INTERFAC E SYSTEM PLATELET EST. Normal Normal INTERF LAMBERTO SYSTEM RBC MORPHOLOGY Abnormal(A ) Normal INTERFACE SYSTEM ANISOCYTOSIS 1+(A) None Seen INTERFA CE SYSTEM POLYCHROMASIA 1+(A) None Seen INTERF LAMBERTO SYSTEM 2005 5:24 AM AUTOMATIC BE[employer] T[employer]ER Abel Zimmerman MD HEMATOLOGY ORDERABLES COM Final Result INTERFACE SYSTEM Refer to clinic/hospital department * (ABNORMAL) CBC WITH DIFFERENTIAL (2005 5:24 AM AUTOMATIC BEAM WARPER TENDER) WBC 7.0(L) 9.4 - 34.0 K/ul INTERFACE SYSTEM Comment: WBC Corrected for Nucleated RBC'S RBC 5.29 3.60 - 6.60 Mil/ul INTERFACE SYSTEM HEMOGLOBIN 19.5(H) 14.2 - 17.2 g/dL INTERFACE SYSTEM HEMATOCRIT 55.6 47.0 - 57.0 % INTERFACE SYSTEM MCV 105.1 95.0 - 118.0 Fl INTERFACE SYSTEM MCH 36.9 31.0 - 37.0 pg INTERFACE SYSTEM MCHC 35.1 31.0 - 37.0 g/dL INTERFACE SYSTEM RDW 18.0(H) 11.0 - 14.5 % INTERFACE SYSTEM PLATELETS 167 140 - 440 K/ul INTERFACE SYSTEM MPV 11.2 8.9 - 12.8 Fl INTERFACE SYSTEM NEUTROPHILS 38.4(L) 42.2 - 75.2 % INTERFACE SYSTEM LYMPHOCYTES 40.0(L) 43.0 - 53.0 % INTERFACE SYSTEM MONOCYTES 16.3(H) 8.0 - 9.0 % INTERFACE SYSTEM EOSINOPHILS 5.0 0.0 - 7.0 % INTERFACE SYSTEM BASOPHILS 0.3 0.0 - 1.0 % INTERFACE SYSTEM NEUTROPHIL ABSOLUTE 2.7 2.0 - 8.0 K/uL INTERFACE SYSTEM LYMPHOCYTE ABSOLUTE 2.9 1.2 - 4.0 K/ul INTERFACE SYSTEM MONOCYTE ABSOLUTE 1.2(H) 0.1 - 0.6 K/ul INTERFACE SYSTEM EOSINOPHIL ABSOLUTE 0.4 0.0 - 0.7 K/ul INTERFACE SYSTEM BASOPHILS ABSOLUTE 0.0 0.0 - 0.2 K/ul INTERFACE SYSTEM NRBC 1 <=1 INTERFACE SYSTEM 2005 5:24 AM AUTOMATIC BE[employer]ER Abel Zimmerman MD HEMATOLOGY ORDERABLES Final Result INTERFACE SYSTEM Refer to clinic/hospital department * THEOPHYLLINE LEVEL (2005 5:24 AM AUTOMATIC BEAM WARPER TENDER) THEOPHYLLINE LEVEL 12.9 10.0 - 20.0 mcg/mL INTERFACE SYSTEM 2005 5:24 AM AUTOMATIC BEAM WARPER TENDER us Abel Zimmerman MD CHEMISTRY ORDERABLES Final Result Performing Organization Address [facility] Co de Phone Number INTERFACE SYSTEM Refer to clinic/hospital department * (ABNORMAL) PANEL 1 (2005 5:24 AM AUTOMATIC BEAM WARPER TENDER) TRIGLYCERIDE 48 0 - 158 mg/dL INTERFACE SYSTEM GLUCOSE 111(H) 50 - 80 mg/dL INTERFACE SYSTEM BUN 11 7 - 17 mg/dL INTERFACE SYSTEM CREATININE 0.6 0.2 - 0.7 mg/dL INTERFACE SYSTEM SODIUM 139 136 - 145 mEq/L INTERFACE SYSTEM POTASSIUM 4.1 3.5 - 5.0 mEq/L INTERFACE SYSTEM Comment:Specimen moderately hemolyzed CO2 24 22 - 32 mmol/l INTERFACE SYSTEM CHLORIDE 105 95 - 110 mEq/L INTERFACE SYSTEM CALCIUM 9.4 8.4 - 10.5 mg/dL INTERFACE SYSTEM PHOSPHORUS 7.7 4.2 - 9.0 mg/dL INTERFACE SYSTEM MAGNESIUM 2.1 1.6 - 2.3 mg/dL INTERFACE SYSTEM ANION GAP 14 9 - 20 mEq/L INTERFACE SYSTEM OSMOLALITY, CALCULATED 286 275 - 295 mOsm/Kg INTERFACE SYSTEM 2005 5:24 AM AUTOMATIC BEAM WAR[employer] TENDER us Abel Zimmerman MD CHEMISTRY ORDERABLES Final Result Performing Organization Address [facility] Phone Number INTERFACE SYSTEM Refer to clinic/hospital department * (ABNORMAL) POC GLUCOSE (2005 5:34 PM AUTOMATIC BEAM WARPER TENDER) GLUCOSE POC 145(H) 50 - 80 mg/dL INTERFACE SYSTEM 2005 5:34 PM AUTOMATIC BEAM WARPER TENDER us Abel Zimmerman MD POINT OF CARE TESTING Final Result Performing Organization Address [facility] Co de Phone Number INTERFACE SYSTEM Refer to clinic/hospital department * GENTAMICIN LEVEL TROUGH (2005 11:49 AM AUTOMATIC BEAM WARPER TENDER) GENTAMICIN, TROUGH <0.2 0.0 - 2.0 mcg/mL INTERFACE SYSTEM Comment: As of 05 at 11:00 a.m. [facility] has changed the methodology for Gentamicin Trough, and with this change the reference range has not changed. 2005 11:4 9 AM AUTOMATIC BEAM WARPER TENDER Result Diamante Zimmerman MD CHEMISTRY ORDERABLES Final Result Performing Organization Address [facility] Phone Number INTERFACE SYSTEM Refer to clinic/hospital department * DRUG SCREEN, MECONIUM (2005 10:39 AM AUTOMATIC BEAM WARPER TENDER) DRUG SCREEN, MECONIUM Sent to Reference Lab INTERFACE SYSTEM 2005 10:3 9 AM AUTOMATIC BEAM WARPER TENDER Result Diamante Zimmerman MD BODY FLUIDS AND STOOL S COM Final Result Performing Organization Address [facility] Phone Number INTERFACE SYSTEM Refer to clinic/hospital department * (ABNORMAL) POC GLUCOSE (2005 8:30 AM AUTOMATIC BEAM WARPER TENDER) GLUCOSE POC 100(H) 50 - 80 mg/dL INTERFACE SYSTEM 2005 8:30 AM AUTOMATIC BEAM WARPER TENDER Result Diamante Zimmerman MD POINT OF CARE TESTING Final Result Performing Organization Address [facility] Phone Number INTERFACE SYSTEM Refer to clinic/hospital department * THEOPHYLLINE LEVEL (2005 1:16 AM AUTOMATIC BEAM WARPER TENDER) THEOPHYLLINE LEVEL 11.5 10.0 - 20.0 mcg/mL INTERFACE SYSTEM 2005 1:16 AM AUTOMATIC BEAM WARPER TENDER Result Diamante Zimmerman MD CHEMISTRY ORDERABLES Final Result Performing Organization Address [facility] Phone Number INTERFACE SYSTEM Refer to clinic/hospital department * (ABNORMAL) DIFFERENTIAL, MANUAL (2005 1:16 AM AUTOMATIC BEAM WARPER TENDER) Pathologist [facility] NEUTROPHILS, SEG 40(H) 15 - 35 % INT ERFACE SYSTEM LYMPHOCYTES 43(H) 26 - 36 % INTERFAC E SYSTEM MONOCYTE 13(H) 5 - 6 % INTERFACE SYSTEM EOSINOPHILS 3 0 - 3 % INTERFAC E SYSTEM BASOPHILS 1 0 - 1 % INTERFACE SYSTEM PLATELET EST. Normal Normal INTERF LAMBERTO SYSTEM RBC MORPHOLOGY Abnormal(A ) Normal INTERFACE SYSTEM ANISOCYTOSIS 1+(A) None Seen INTERFA CE SYSTEM POIKILOCYTES 1+(A) None Seen INTERFA CE SYSTEM POLYCHROMASIA 1+(A) None Seen INTERF LAMBERTO SYSTEM 2005 1:16 AM AUTOMATIC BEAM W[employer] T[employer] us Abel Zimmerman MD HEMATOLOGY ORDERABLES COM Final Result Performing Organization Address [facility]/ZIP Co de Phone Number INTERFACE SYSTEM Refer to clinic/hospital department * (ABNORMAL) CBC WITH DIFFERENTIAL (2005 1:16 AM AUTOMATIC BEAM WARPER TENDER) [facility] WBC 7.0(L) 9.4 - 34.0 K/ul INTERFACE SYSTEM RBC 5.41 4.70 - 6.10 Mil/ul INTERFACE SYSTEM HEMOGLOBIN 19.8 17.4 - 22.2 g/dL INTERFACE SYSTEM HEMATOCRIT 57.5(L) 58.0 - 74.0 % INTERFACE SYSTEM MCV 106.3(L) 108.0 - 136.0 Fl INTERFACE SYSTEM MCH 36.6 31.0 - 37.0 pg INTERFACE SYSTEM MCHC 34.4 31.0 - 37.0 g/dL INTERFACE SYSTEM RDW 18.3(H) 11.0 - 14.5 % INTERFACE SYSTEM PLATELETS 169 140 - 440 K/ul INTERFACE SYSTEM MPV 10.6 8.9 - 12.8 Fl INTERFACE SYSTEM 2005 1:16 AM AUTOMATIC BEAM WAR[employer] T[employer] us Abel Zimmerman MD HEMATOLOGY ORDERABLES Final Result INTERFACE SYSTEM Refer to clinic/hospital department * (ABNORMAL) PANEL 1 (2005 1:16 AM AUTOMATIC BEAM WARPER TENDER) TRIGLYCERIDE 65 0 - 158 mg/dL INTERFACE SYSTEM GLUCOSE 107(H) 50 - 80 mg/dL INTERFACE SYSTEM BUN 8 7 - 17 mg/dL INTERFACE SYSTEM CREATININE 0.6 0.2 - 0.7 mg/dL INTERFACE SYSTEM SODIUM 139 136 - 145 mEq/L INTERFACE SYSTEM POTASSIUM 3.3(L) 3.5 - 5.0 mEq/L INTERFACE SYSTEM CO2 23 22 - 32 mmol/l INTERFACE SYSTEM CHLORIDE 108 95 - 110 mEq/L INTERFACE SYSTEM CALCIUM 9.1 8.4 - 10.5 mg/dL INTERFACE SYSTEM PHOSPHORUS 7.0 4.2 - 9.0 mg/dL INTERFACE SYSTEM MAGNESIUM 2.2 1.6 - 2.3 mg/dL INTERFACE SYSTEM ANION GAP 11 9 - 20 mEq/L INTERFACE SYSTEM OSMOLALITY, CALCULATED 283 275 - 295 mOsm/Kg INTERFACE SYSTEM 2005 1:16 AM AUTOMATIC BEAM WARPER TENDER us Abel Zimmerman MD CHEMISTRY ORDERABLES Final Result Performing Organization Address [place]/[facility] Co de Phone Number INTERFACE SYSTEM Refer to clinic/hospital department * (ABNORMAL) POC GLUCOSE (2005 1:06 AM AUTOMATIC BEAM WARPER TENDER) GLUCOSE POC 99(H) 50 - 80 mg/dL INTERFACE SYSTEM 2005 1:06 AM AUTOMATIC BEAM WARPER TENDER us Abel Zimmerman MD POINT OF CARE TESTING Final Result Performing Organization Address [facility]/ZIP Co de Phone Number INTERFACE SYSTEM Refer to clinic/hospital department * (ABNORMAL) POC GLUCOSE (2005 5:32 PM AUTOMATIC BEAM WARPER TENDER) GLUCOSE POC 110(H) 50 - 80 mg/dL INTERFACE SYSTEM 2005 5:32 PM AUTOMATIC BEAM WARPER TENDER us Abel Zimmerman MD POINT OF CARE TESTING Final Result Performing Organization Address [facility]/ZIP Co de Phone Number INTERFACE SYSTEM Refer to clinic/hospital department * (ABNORMAL) POC GLUCOSE (2005 12:59 PM AUTOMATIC BEAM WARPER TENDER) GLUCOSE POC 109(H) 50 - 80 mg/dL INTERFACE SYSTEM 2005 12:5 9 PM AUTOMATIC BEAM WARPER TENDER us Abel Zimmerman MD POINT OF CARE TESTING Final Result Performing Organization Address [facility] Phone Number INTERFACE SYSTEM Refer to clinic/hospital department * (ABNORMAL) POC GLUCOSE (2005 10:14 AM AUTOMATIC BEAM WARPER TENDER) GLUCOSE POC 102(H) 50 - 80 mg/dL INTERFACE SYSTEM 2005 10:1 4 AM AUTOMATIC BEAM WARPER TENDER us Abel Zimmerman MD POINT OF CARE TESTING Final Result Performing Organization Address [facility] Phone Number INTERFACE SYSTEM Refer to clinic/hospital department * (ABNORMAL) DIFFERENTIAL, MANUAL (2005 4:47 AM AUTOMATIC BEAM WARPER TENDER) NEUTROPHILS, SEG 30(L) 32 - 62 % INT ERFACE SYSTEM LYMPHOCYTES 62(H) 26 - 36 % INTERFAC E SYSTEM MONOCYTE 8(H) 5 - 6 % INTERFACE SYSTEM PLATELET EST. Decreased (A) Normal INTERFACE SYSTEM RBC MORPHOLOGY Abnormal( A) Normal INTERFACE SYSTEM ANISOCYTOSIS 1+(A) None Seen INTERFA CE SYSTEM POIKILOCYTES 1+(A) None Seen INTERFA CE SYSTEM POLYCHROMASIA 1+(A) None Seen INTERF LAMBERTO SYSTEM 2005 4:47 AM AUTOMATIC BEAM WARPER TENDER us Abel Zimmerman MD HEMATOLOGY ORDERABLES COM Final Result Performing Organization Address [facility] Phone Number INTERFACE SYSTEM Refer to clinic/hospital department * (ABNORMAL) CBC WITH DIFFERENTIAL (2005 4:47 AM AUTOMATIC BEAM WARPER TENDER) WBC 7.5(L) 9.4 - 34.0 K/ul INTERFACE SYSTEM Comment: WBC Corrected for Nucleated RBC'S RBC 5.40 4.70 - 6.10 Mil/ul INTERFACE SYSTEM HEMOGLOBIN 20.5 17.4 - 22.2 g/dL INTERFACE SYSTEM HEMATOCRIT 58.3 58.0 - 74.0 % INTERFACE SYSTEM MCV 108.0 108.0 - 136.0 Fl INTERFACE SYSTEM MCH 38.0(H) 31.0 - 37.0 pg INTERFACE SYSTEM MCHC 35.2 31.0 - 37.0 g/dL INTERFACE SYSTEM RDW 18.9(H) 11.0 - 14.5 % INTERFACE SYSTEM PLATELETS 92(L) 140 - 440 K/ul INTERFACE SYSTEM MPV ------ 8.9 - 12.8 Fl INTERFACE SYSTEM NRBC 1 <=1 INTERFACE SYSTEM 2005 4:47 AM AUTOMATIC BEAM WARPER TENDER Abel Zimmemran MD HEMATOLOGY ORDERABLES Final Result Performing Organization Address [place]/[facility] de Phone Number INTERFACE SYSTEM Refer to clinic/hospital department * (ABNORMAL) PANEL 1 (2005 4:47 AM AUTOMATIC BEAM WARPER TENDER) TRIGLYCERIDE 61 0 - 158 mg/dL INTERFACE SYSTEM GLUCOSE 147(H) 50 - 80 mg/dL INTERFACE SYSTEM BUN 9 7 - 17 mg/dL INTERFACE SYSTEM CREATININE 0.6 0.2 - 0.7 mg/dL INTERFACE SYSTEM SODIUM 141 136 - 145 mEq/L INTERFACE SYSTEM POTASSIUM 4.4 3.5 - 5.0 mEq/L INTERFACE SYSTEM CO2 24 22 - 32 mmol/l INTERFACE SYSTEM CHLORIDE 109 95 - 110 mEq/L INTERFACE SYSTEM CALCIUM 8.6 8.4 - 10.5 mg/dL INTERFACE SYSTEM PHOSPHORUS 6.2 4.2 - 9.0 mg/dL INTERFACE SYSTEM MAGNESIUM 2.6(H) 1.6 - 2.3 mg/dL INTERFACE SYSTEM ANION GAP 12 9 - 20 mEq/L INTERFACE SYSTEM OSMOLALITY, CALCULATED 292 275 - 295 mOsm/Kg INTERFACE SYSTEM 2005 4:47 AM AUTOMATIC BEAM WARPER TENDER Abel Zimmerman MD CHEMISTRY ORDERABLES Final Result Performing Organization Address [facility] Co de Phone Number INTERFACE SYSTEM Refer to clinic/hospital department * (ABNORMAL) POC GLUCOSE (2005 4:38 AM AUTOMATIC BEAM WARPER TENDER) GLUCOSE POC 140(H) 50 - 80 mg/dL INTERFACE SYSTEM 2005 4:38 AM AUTOMATIC BEAM WARPER TENDER Abel Zimmerman MD POINT OF CARE TESTING Final Result Performing Organization Address [facility] de Phone Number INTERFACE SYSTEM Refer to clinic/hospital department * (ABNORMAL) POC GLUCOSE (2005 11:13 PM AUTOMATIC BEAM WARPER TENDER) GLUCOSE POC 160(H) 50 - 80 mg/dL INTERFACE SYSTEM 2005 11:1 3 PM AUTOMATIC BEAM WARPER TENDER Abel Zimmerman MD POINT OF CARE TESTING Final Result Performing Organization Address [facility] de Phone Number INTERFACE SYSTEM Refer to clinic/hospital department * (ABNORMAL) POC GLUCOSE (2005 9:58 PM AUTOMATIC BEAM WARPER TENDER) GLUCOSE POC 176(H) 50 - 80 mg/dL INTERFACE SYSTEM 2005 9:58 PM AUTOMATIC BEAM WARPER TENDER Abel Zimmerman MD POINT OF CARE TESTING Final Result Performing Organization Address [facility] de Phone Number INTERFACE SYSTEM Refer to clinic/hospital department * (ABNORMAL) POC GLUCOSE (2005 7:56 PM AUTOMATIC BEAM WARPER TENDER) GLUCOSE POC 163(H) 50 - 80 mg/dL INTERFACE SYSTEM 2005 7:56 PM AUTOMATIC BEAM WARPER TENDER us Abel Zimmerman MD POINT OF CARE TESTING Final Result Performing Organization Address [facility] de Phone Number INTERFACE SYSTEM Refer to clinic/hospital department * (ABNORMAL) POC GLUCOSE (2005 4:35 PM AUTOMATIC BEAM WARPER TENDER) GLUCOSE POC 157(H) 50 - 80 mg/dL INTERFACE SYSTEM 2005 4:35 PM AUTOMATIC BEAM WARPER TENDER us Abel Zimmerman MD POINT OF CARE TESTING Final Result Performing Organization Address [facility] Phone Number INTERFACE SYSTEM Refer to clinic/hospital department * DRUGS OF ABUSE PANEL 5 (2005 11:02 AM AUTOMATIC BEAM WARPER TENDER) Pathologist [facility] [place] DRUG SCREEN, URINE See Sep Report INTERFACE SYSTEM 2005 11:0 2 AM AUTOMATIC BEAM WARPER TENDER us Abel Zimmerman MD URINE ORDERABLES Karly l Result Performing Organization Address [facility] Phone Number INTERFACE SYSTEM Refer to clinic/hospital department * (ABNORMAL) C-REACTIVE PROTEIN (2005 10:21 AM AUTOMATIC BEAM WARPER TENDER) Pathologist [facility] [place] CRP 1.9(H) 0.0 - 1.0 mg/dL INTERFACE SYSTEM Comment: This is a standard CRP method, and is not intended as a marker for Heart Disease This test cannot be used to assess cardiac risk. As of 06/12/2004, the linearity on CRP has been changed to 0.3-11.0 mg/dl. The past range was 0.7-11.0 mg/dl. 2005 10:2 1 AM AUTOMATIC BEAM WARPER TENDER us Abel Zimmerman MD CHEMISTRY ORDERABLES Final Result Performing Organization Address [facility] Phone Number INTERFACE SYSTEM Refer to clinic/hospital department * (ABNORMAL) POC GLUCOSE (2005 10:13 AM AUTOMATIC BEAM WARPER TENDER) [facility] GLUCOSE POC 121(H) 50 - 80 mg/dL INTERFACE SYSTEM 2005 10:1 3 AM AUTOMATIC BEAM WARPER TENDER us Abel Zimmerman MD POINT OF CARE TESTING Final Result Performing Organization Address [facility] Phone Number INTERFACE SYSTEM Refer to clinic/hospital department * (ABNORMAL) DIFFERENTIAL, MANUAL (2005 6:12 AM AUTOMATIC BEAM WARPER TENDER) NEUTROPHILS, SEG 47 32 - 62 % INT ERFACE SYSTEM BANDS 5(L) 10 - 18 % INTERFACE SYSTEM LYMPHOCYTES 35 26 - 36 % INTERFAC E SYSTEM MONOCYTE 13(H) 5 - 6 % INTERFACE SYSTEM PLATELET EST. Decreased (A) Normal INTERFACE SYSTEM RBC MORPHOLOGY Abnormal( A) Normal INTERFACE SYSTEM ANISOCYTOSIS 1+(A) None Seen INTERFA CE SYSTEM POIKILOCYTES 1+(A) None Seen INTERFA CE SYSTEM POLYCHROMASIA 1+(A) None Seen INTERF LAMBERTO SYSTEM 2005 6:12 AM AUTOMATIC BEAM WARPER TENDER Abel Zimmerman MD HEMATOLOGY ORDERABLES COM Final Result INTERFACE SYSTEM Refer to clinic/hospital department * (ABNORMAL) CBC WITH DIFFERENTIAL (2005 6:12 AM AUTOMATIC BEAM WARPER TENDER) WBC 8.3(L) 9.4 - 34.0 K/ul INTERFACE SYSTEM Comment: WBC Corrected for Nucleated RBC'S RBC 5.79 4.00 - 6.60 Mil/ul INTERFACE SYSTEM HEMOGLOBIN 21.8 14.5 - 22.5 g/dL INTERFACE SYSTEM HEMATOCRIT 62.5 45.0 - 67.0 % INTERFACE SYSTEM MCV 107.9 95.0 - 121.0 Fl INTERFACE SYSTEM MCH 37.7(H) 31.0 - 37.0 pg INTERFACE SYSTEM MCHC 34.9 31.0 - 37.0 g/dL INTERFACE SYSTEM RDW 18.7(H) 11.0 - 14.5 % INTERFACE SYSTEM PLATELETS 135(L) 140 - 440 K/ul INTERFACE SYSTEM MPV 10.8 8.9 - 12.8 Fl INTERFACE SYSTEM NRBC 3(H) <=1 INTERFACE SYSTEM 2005 6:12 AM AUTOMATIC BEAM WARPER TENDER Abel Zimmerman MD HEMATOLOGY ORDERABLES Final Result INTERFACE SYSTEM Refer to clinic/hospital department * (ABNORMAL) PANEL 1 (2005 6:11 AM AUTOMATIC BEAM WARPER TENDER) TRIGLYCERIDE 77 0 - 158 mg/dL INTERFACE SYSTEM GLUCOSE 125(H) 50 - 80 mg/dL INTERFACE SYSTEM BUN 14 7 - 17 mg/dL INTERFACE SYSTEM CREATININE 0.7 0.2 - 0.7 mg/dL INTERFACE SYSTEM SODIUM 134(L) 136 - 145 mEq/L INTERFACE SYSTEM POTASSIUM 5.8(H) 3.5 - 5.0 mEq/L INTERFACE SYSTEM Comment:Specimen moderately hemolyzed CO2 22 22 - 32 mmol/l INTERFACE SYSTEM CHLORIDE 105 95 - 110 mEq/L INTERFACE SYSTEM CALCIUM 8.4 8.4 - 10.5 mg/dL INTERFACE SYSTEM PHOSPHORUS 4.6 4.2 - 9.0 mg/dL INTERFACE SYSTEM MAGNESIUM 3.1(H) 1.6 - 2.3 mg/dL INTERFACE SYSTEM ANION GAP 13 9 - 20 mEq/L INTERFACE SYSTEM OSMOLALITY, CALCULATED 282 275 - 295 mOsm/Kg INTERFACE SYSTEM 2005 6:11 AM AUTOMATIC BEAM WARPER TENDER us Abel Zimmerman MD CHEMISTRY ORDERABLES Final Result Performing Organization Address [facility] de Phone Number INTERFACE SYSTEM Refer to clinic/hospital department * (ABNORMAL) POC GLUCOSE (2005 6:06 AM AUTOMATIC BEAM WARPER TENDER) Pathologist [facility] [place] GLUCOSE POC 121(H) 50 - 80 mg/dL INTERFACE SYSTEM 2005 6:06 AM AUTOMATIC BEAM WARPER TENDER us Abel Zimmerman MD POINT OF CARE TESTING Final Result Performing Organization Address [facility] Phone Number INTERFACE SYSTEM Refer to clinic/hospital department * (ABNORMAL) POC ISTAT 8 (2005 3:13 AM AUTOMATIC BEAM WARPER TENDER) SPECIMEN TYPE Capillary INTERF LAMBERTO SYSTEM Comment: Critical result performed at the point of care. Pulse OX: 96 FIO2 21 INTERFACE SYSTEM PH 7.35 7.35 - 7.45 Unit INTERFACE SYSTEM PH TEMP CORRECT 7.35 7.35 - 7.45 Unit INTERFACE SYSTEM PCO2 POC 38 35 - 45 mmHg INTERFACE SYSTEM PCO2 TEMP CORRECT 38 35 - 45 mmHg INTERFACE SYSTEM PO2 62(L) 80 - 105 mmHg INTERFACE SYSTEM PO2 TEMP CORRECT 62(L) 80 - 105 mmHg INTERFACE SYSTEM HCO3 (CALC) POC 21.0(L) 22.0 - 26.0 mmol/l INTERFACE SYSTEM BASE EXCESS -5(L) -2 - 3 mmol/l INTERFACE SYSTEM HEMOGLOBIN POC 22.1(H) 12.0 - 16.0 g/dL INTERFACE SYSTEM HEMATOCRIT ABG 65(AA) 38 - 51 % INTER FACE SYSTEM O2 SATURATION 90(L) 95 - 98 % INTERF LAMBERTO SYSTEM TCO2 (CALC) POC 22(L) 23 - 27 mmol/l INTERFACE SYSTEM SODIUM 135(L) 138 - 146 mEq/L INTERFACE SYSTEM POTASSIUM 4.8 3.5 - 4.9 mEq/L INTERFACE SYSTEM CALCIUM IONIZED 1.20(H) 1.00 - 1.18 mmol/l INTERFACE SYSTEM GLUCOSE 125(H) 50 - 80 mg/dL INTERFACE SYSTEM 2005 3:13 AM AUTOMATIC BEAM WARPER TENDER Abel Zimmerman MD ABG ORDERABLES Final Result INTERFACE SYSTEM Refer to clinic/hospital department * (ABNORMAL) POC ISTAT 8 (2005 12:06 AM AUTOMATIC BEAM WARPER TENDER) SPECIMEN TYPE Venous INTERF LAMBERTO SYSTEM Comment: Critical result performed at the point of care. Pulse OX: 96 FIO2 21 INTERFACE SYSTEM PH 7.31 7.31 - 7.41 Unit INTERFACE SYSTEM PH TEMP CORRECT 7.31 7.31 - 7.41 Unit INTERFACE SYSTEM PCO2 POC 45 41 - 51 mmHg INTERFACE SYSTEM PCO2 TEMP CORRECT 45 41 - 51 mmHg INTERFACE SYSTEM PO2 51(L) 80 - 105 mmHg INTERFACE SYSTEM PO2 TEMP CORRECT 51(L) 80 - 105 mmHg INTERFACE SYSTEM HCO3 (CALC) POC 22.9(L) 23.0 - 28.0 mmol/l INTERFACE SYSTEM BASE EXCESS -3(L) -2 - 3 mmol/l INTERFACE SYSTEM HEMOGLOBIN POC 20.7(H) 12.0 - 16.0 g/dL INTERFACE SYSTEM HEMATOCRIT ABG 61(AA) 38 - 51 % INTER FACE SYSTEM O2 SATURATION 82(L) 95 - 98 % INTERF LAMBERTO SYSTEM TCO2 (CALC) POC 24 24 - 29 mmol/l INTERFACE SYSTEM SODIUM 135(L) 138 - 146 mEq/L INTERFACE SYSTEM POTASSIUM 4.5 3.5 - 4.9 mEq/L INTERFACE SYSTEM CALCIUM IONIZED 1.19(H) 1.00 - 1.18 mmol/l INTERFACE SYSTEM GLUCOSE 100(H) 50 - 80 mg/dL INTERFACE SYSTEM 2005 12:0 6 AM AUTOMATIC BEAM WARPER TENDER Abel Zimmerman MD ABG ORDERABLES Final Result INTERFACE SYSTEM Refer to clinic/hospital department * (ABNORMAL) DIFFERENTIAL, MANUAL (2005 12:04 AM AUTOMATIC BEAM WARPER TENDER) NEUTROPHILS, SEG 32 32 - 62 % INT ERFACE SYSTEM BANDS 1(L) 10 - 18 % INTERFACE SYSTEM LYMPHOCYTES 35 26 - 36 % INTERFAC E SYSTEM MONOCYTE 25(H) 5 - 6 % INTERFACE SYSTEM EOSINOPHILS 7(H) 0 - 3 % INTERFAC E SYSTEM PLATELET EST. Normal Normal INTERF LAMBERTO SYSTEM RBC MORPHOLOGY Abnormal(A ) Normal INTERFACE SYSTEM ANISOCYTOSIS 1+(A) None Seen INTERFA CE SYSTEM POIKILOCYTES 2+(A) None Seen INTERFA CE SYSTEM [place] CELLS 1+ None Seen INTERFACE SYSTEM POLYCHROMASIA 2+(A) None Seen INTERF LAMBERTO SYSTEM 2005 12:0 4 AM AUTOMATIC BEAM WARPER TENDER Abel Zimmerman MD HEMATOLOGY ORDERABLES COM Final Result Performing Organization Address [facility] Co de Phone Number INTERFACE SYSTEM Refer to clinic/hospital department * (ABNORMAL) PANEL 1 (2005 12:04 AM AUTOMATIC BEAM WARPER TENDER) TRIGLYCERIDE 60 0 - 158 mg/dL INTERFACE SYSTEM GLUCOSE 100(H) 50 - 80 mg/dL INTERFACE SYSTEM BUN 13 7 - 17 mg/dL INTERFACE SYSTEM CREATININE 0.7 0.2 - 0.7 mg/dL INTERFACE SYSTEM SODIUM 134(L) 136 - 145 mEq/L INTERFACE SYSTEM POTASSIUM 4.2 3.5 - 5.0 mEq/L INTERFACE SYSTEM CO2 26 22 - 32 mmol/l INTERFACE SYSTEM CHLORIDE 104 95 - 110 mEq/L INTERFACE SYSTEM CALCIUM 8.2(L) 8.4 - 10.5 mg/dL INTERFACE SYSTEM PHOSPHORUS 4.2 4.2 - 9.0 mg/dL INTERFACE SYSTEM MAGNESIUM 3.4(H) 1.6 - 2.3 mg/dL INTERFACE SYSTEM ANION GAP 8(L) 9 - 20 mEq/L INTERFACE SYSTEM OSMOLALITY, CALCULATED 277 275 - 295 mOsm/Kg INTERFACE SYSTEM 2005 12:0 4 AM AUTOMATIC BEAM WARPER TENDER us Abel Zimmerman MD CHEMISTRY ORDERABLES Final Result Performing Organization Address [facility] Phone Number INTERFACE SYSTEM Refer to clinic/hospital department * (ABNORMAL) CBC WITH DIFFERENTIAL (2005 12:04 AM AUTOMATIC BEAM WARPER TENDER) WBC 5.6(L) 9.4 - 34.0 K/ul INTERFACE SYSTEM Comment: WBC Corrected for Nucleated RBC'S RBC 5.42 4.00 - 6.60 Mil/ul INTERFACE SYSTEM HEMOGLOBIN 20.1 14.5 - 22.5 g/dL INTERFACE SYSTEM HEMATOCRIT 60.0 45.0 - 67.0 % INTERFACE SYSTEM MCV 110.7 95.0 - 121.0 Fl INTERFACE SYSTEM MCH 37.1(H) 31.0 - 37.0 pg INTERFACE SYSTEM MCHC 33.5 31.0 - 37.0 g/dL INTERFACE SYSTEM RDW 19.0(H) 11.0 - 14.5 % INTERFACE SYSTEM PLATELETS 153 140 - 440 K/ul INTERFACE SYSTEM MPV 10.7 8.9 - 12.8 Fl INTERFACE SYSTEM NRBC 13(H) <=1 INTERFACE SYSTEM 2005 12:0 4 AM AUTOMATIC BEAM WARPER TENDER us Abel Zimmerman MD HEMATOLOGY ORDERABLES Final Result Performing Organization Address [facility] Phone Number INTERFACE SYSTEM Refer to clinic/hospital department * POC GLUCOSE (2005 10:37 PM AUTOMATIC BEAM WARPER TENDER) GLUCOSE POC 66 50 - 80 mg/dL INTERFACE SYSTEM COMMENT POC Baby 1 Glucose INTERFACE SYSTEM 2005 10:3 7 PM AUTOMATIC BEAM WARPER TENDER Result Diamante Zimmerman MD POINT OF CARE TESTING Final Result Performing Organization Address [facility] Phone Number INTERFACE SYSTEM Refer to clinic/hospital department documented in this encounter Visit Diagnoses Diagnosis Single liveborn, born in hospital, delivered by delivery- Primary documented in this encounter Care Teams Drill Sharpener Relationship Specialty Start Date End Date Erin William MANAGER [employer] [address] [place] [address] PCP - General Nurse Practitioner Family 12/01/20 documented as of this encounter
--- OUTSIDE RECORDS SUMMARY | 2025-10-12 01:32 | XMS_ITS | Encounter Summary ---
Author Organization [facility] Address [address] [place] [address] Care Team Providers Care Electrical Assistant Name Role Phone Erin William QUALITY CONTROL DIRECTOR Primary Care Provider [phone] Encounter Details Date Type Department Care Team (Latest Contact Info) Description 01/15/2006 Outpatient Historical [facility] [address] [place] [address] Db Saez MD [address] [place] [address] Routine Child Health Exam (Primary Dx); Unspecified Anemia; Esophageal Reflux; Other Infants, Unspecified (Weight) Social History Tobacco Use Types Packs/Day Years Used Date Smoking Tobacco: Never Assessed Comments Unknown Sex and Gender Information Value Date Recorded Sex Assigned at Not on file Legal Sex Female 5:39 AM BOOT TRIMMER Gender Identity Not on file Sexual Orientation Not on file documented as of this encounter Plan of Treatment Not on file documented as of this encounter Visit Diagnoses Diagnosis Routine child health exam- Primary Routine or child health check Anemia, unspecified Esophageal reflux Other infants, unspecified (weight)(765.10) Other infants, unspecified (weight) documented in this encounter Care Teams Electrical Assistant Relationship Specialty Start Date End Date Erin William NP [address] [place] [address] PCP - General Nurse Practitioner Family 12/01/20 documented as of this encounter
[2025-10-12 01:34] VITALS: BP 150/87; PULSE 87; RESP 18; TEMP 36.8; O2SAT 100
[2025-10-12 01:51] LABS: Hematocrit 38.7 % (36-47); Hemoglobin 11.80 g/dL (12.4-14.8); Mean Corpuscular HGB Conc 30.5 g/dL (30-55); Mean Corpuscular Hemoglobin 22.0 pg (27-33); Mean Corpuscular Volume 72.2 fl (85-98); Nucleated Red Blood Cells % 0 %; Platelet Count 443 10^3/cmm (157-399); Red Blood Count 5.36 10^6/uL (3.85-5.65); White Blood Count 11.56 10^3/uL (4.5-13.0)
[2025-10-12 01:56] LABS: HCG, Serum Qual Negative (Negative)
[2025-10-12 02:06] LABS: Albumin Level 4.0 g/dL (3.5-5.2); Alkaline Phosphatase 92 U/L (35-105); Chloride 107 mmol/L (98-107); Potassium 3.7 mmol/L (3.5-5.1); Sodium 140 mmol/L (136-145)
[2025-10-12 02:07] LABS: Lactic Sepsis W/Reflex 1.1 mmol/L (0.5-2.2)
--- NOTE | 2025-10-12 02:08 | CTR_ITS ---
PROCEDURE INFORMATION: Exam: CT Abdomen And Pelvis With Contrast Exam date and time: 10/12/2025 2:18 AM Age: 20 years old Clinical indication: Abdominal pain; Epigastric; Additional info: Epigastric pain TECHNIQUE: Imaging protocol: Computed tomography of the abdomen and pelvis with contrast. Radiation optimization: All CT scans at this facility use at least one of these dose optimization techniques: automated exposure control; mA and/or kV adjustment per patient size (includes targeted exams where dose is matched to clinical indication); or iterative reconstruction. Contrast material: OMNI 350; Contrast volume: 100 ml; Contrast route: INTRAVENOUS (IV); COMPARISON: CT kidney stone [id number] 12/21/2024 7:53 PM RADIATION DOSE METRICS: Total DLP (mGy-cm): 1134.03 FINDINGS: Liver: Normal. No mass. Gallbladder and biliary ducts: Normal. No calcified stones. No ductal dilation. Pancreas: Normal. No ductal dilation. Spleen: The spleen is otherwise normal. A splenule is present. Adrenal glands: Normal. No mass. Kidneys and ureters: Normal. No hydronephrosis. Stomach and bowel: Unremarkable. No obstruction. No mucosal thickening. Appendix: The appendix is normal. Intraperitoneal space: Unremarkable. No free air. No significant fluid collection. Vasculature: Unremarkable. No abdominal aortic aneurysm. Lymph nodes: Unremarkable. No enlarged lymph nodes. Urinary bladder: The urinary bladder is nondistended and poorly characterized. Pseudo wall thickening is present. Reproductive: Unremarkable as visualized. Bones/joints: Unremarkable. No acute fracture. Soft tissues: Unremarkable. CT/CT abdomen pelvis w con* [id number] IMPRESSION: No acute abdominopelvic process to explain the patient's symptoms.
--- NOTE | 2025-10-12 02:10 | W.ED.NAVMDI ---
HPI - Nausea/Vomiting/Diarrhea General: Chief complaint: Nausea/Vomiting/Diarrhea Stated complaint: mid abd pain / NVD Time Seen by Provider: 10/12/25 01:35 History of Present Illness: Healthy 20-year-old female. She presents with epigastric pain, vomiting, diarrhea x 3 days. Vomiting worsening today. Epigastric pain worsened today as well. She denies fever. She has minimal upper respiratory symptoms otherwise such as cough, mild congestion. No sore throat. She does not believe she is . No prior abdominal surgeries. Related Data Home Medications ?Medication ?Instructions ?Recorded ?Confirmed cetirizine 10 mg capsule (Zyrtec) 10 mg PO DAILY PRN Allergic 11/23/19 12/01/20 Reaction Previous Rx's ?Medication ?Instructions ?Recorded atenolol 50 mg tablet 50 mg PO DAILY #30 tabs 12/01/20 hydrocodone 5 mg-acetaminophen 325 1 tab PO Q6H PRN pain #14 tabs 12/21/24 mg tablet ondansetron 4 mg disintegrating 4 mg PO Q6H PRN nausea and 10/12/25 tablet vomiting #14 tabs Allergies Allergy/AdvReac Type Severity Reaction Status Date / Time No Known Allergies Allergy Verified 12/21/24 16:40 PFSH ED PFSH: Family History Other Diabetes Denies family history of CAD (coronary artery disease) Clotting disorder Dementia Hyperlipidemia Psychiatric illness Chronic kidney disease (CKD) Suicide Anesthesia complication Bleeding disorder Family history of premature coronary artery disease Lung disease Cancer Hypertension Stroke Social History Smoking and tobacco/nicotine status: never used tobacco/nicotine Second hand smoke exposure: No Alcohol intake: never Substance/Drug Use: never Adopted: No Physical Exam Const: COMMON NORMALS: no acute distress GENERAL APPEARANCE: cooperative; not ill appearing and not frail appearing HENMT: COMMON NORMALS: normocephalic, atraumatic and Normal external nose present HEAD & SCALP: normocephalic and atraumatic FACE & SINUS: normal facial exam and face symmetric NOSE: Normal external nose present Eye: COMMON NORMALS: Equal, round and reactive pupils present and EOMs intact bilaterally PUPIL: Yes Equal, round and reactive pupils present Neck/C-Spine: GENERAL: Yes trachea midline Chest: CHEST: Yes Symmetrical chest wall rise Resp: COMMON NORMALS: normal respiratory effort, No retractions, No use of accessory muscles and clear to auscultation bilaterally AUSCULTATION: clear to auscultation bilaterally Cardio: COMMON NORMALS: regular rate and regular rhythm RATE: regular rate RHYTHM: regular rhythm GI: COMMON NORMALS: Normal to inspection, nondistended, normoactive bowel sounds present PALPATION: Yes Tenderness to palpation present (GI) Details: LUQ and RUQ Extremity: COMMON NORMALS: no pedal edema Neuro: SAI COMA SCALE: document GCS findings [place] coma scale eye opening: Spontaneous [place] coma scale verbal response: Orientated Sai coma scale motor response: Obey commands [place] coma scale total score: 15 SENSORY EXAM: Yes extremities (intact) Psych: COMMON NORMALS: speech normal SPEECH: Yes normal speech Skin: COMMON NORMALS: no rashes or lesions noted GENERAL SKIN EXAM: no rashes or lesions noted Course Vital Signs: Vital signs: Vital Signs Temperature 98.3 F 10/12/25 01:34 Pulse Rate 76 10/12/25 02:47 Respiratory Rate 16 10/12/25 02:31 Blood Pressure 122/85 10/12/25 02:47 Pulse Oximetry 98 10/12/25 02:47 Oxygen Delivery Me thod Room Air 10/12/25 02:47 MDM - Nausea/Vomiting/Diarrhea Medical Decision Making Vital signs are stable. She is afebrile. Hemoglobin is 12. Platelet count 443. Bicarbonate is 20. She is given a liter of fluid. CRP is 20. Liver enzymes are not remarkable. Lactic acid is 1.1. COVID swab is negative. Urinalysis is negative. CT of the abdomen pelvis shows no acute disease. Symptomatic treatment. Hydration stable for discharge Lab Data 10/12/25 01:35 10/12/25 01:35 Radiology Impressions Abdomen/Pelvis CT 10/12/25 02:08 IMPRESSION: No acute abdominopelvic process to explain the patient's symptoms. Laboratory Results WBC 11.56 10^3/uL (4.5-13.0) 10/12/25 01:35 RBC 5.36 10^6/uL (3.85-5.65) 10/12/25 01:35 Hgb 11.80 g/dL (12.4-14.8) L 10/12/25 01:35 Hct 38.7 % (36-47) 10/12/25 01:35 MCV 72.2 fl (85-98) L 10/12/25 01:35 MCH 22.0 pg (27-33) L 10/12/25 01:35 MCHC 30.5 g/dL (30-55) 10/12/25 01:35 RDW 17.4 % (12.1-15.1) H 10/12/25 01:35 Plt Count 443 10^3/cmm (157-399) H 10/12/25 01:35 MPV 10.2 fL (7.4-10.4) 10/12/25 01:35 Neut % (Auto) 77.3 % 10/12/25 01:35 Lymph % (Auto) 14.7 % 10/12/25 01:35 Coal % (Auto) 4.5 % 10/12/25 01:35 Eos % (Auto) 2.9 % 10/12/25 01:35 Baso % (Auto) 0.3 % 10/12/25 01:35 Neut # (Auto) 8.92 10^3/uL (1.8-8.0) H 10/12/25 01:35 Lymph # (Auto) 1.7 10^3/uL (1.5-6.5) 10/12/25 01:35 Coal # (Auto) 0.5 10^3/uL (0.2-0.9) 10/12/25 01:35 Eos # (Auto) 0.3 10^3/uL (0.0-0.8) 10/12/25 01:35 Baso # (Auto) 0.0 10^3/uL (0.0-0.1) 10/12/25 01:35 Nucleated RBC % (auto) 0 % 10/12/25 01:35 Nucleated RBCs # 0.0 /100WBC 10/12/25 01:35 Sodium 140 mmol/L (136-145) 10/12/25 01:35 Potassium 3.7 mmol/L (3.5-5.1) 10/12/25 01:35 Chloride 107 mmol/L (98-107) 10/12/25 01:35 Carbon Dioxide 20 mmol/L (22-29) L 10/12/25 01:35 Anion Gap 17.7 (5-19) 10/12/25 01:35 BUN 10 mg/dL (6-20) 10/12/25 01:35 Creatinine 0.7 mg/dL (0.5-0.9) 10/12/25 01:35 GFR Calculation 106.7 mL/min (90-130) 10/12/25 01:35 Glucose 131 mg/dL (65-115) H 10/12/25 01:35 Calculated Osmolality 291 mOsm/kg (285-295) 10/12/25 01:35 Lactic Acid 1.1 mmol/L (0.5-2.2) 10/12/25 01:35 Calcium 9.0 mg/dL (8.5-10.5) 10/12/25 01:35 Total Bilirubin 0.2 mg/dL (0.15-1.2) 10/12/25 01:35 AST 12 U/L (0-32) 10/12/25 01:35 ALT 14 U/L (0-33) 10/12/25 01:35 Alkaline Phosphatase 92 U/L (35-105) 10/12/25 01:35 C-Reactive Protein 19.7 mg/L (0.0-4.9) H 10/12/25 01:35 Total Protein 7.0 g/dL (6.6-8.7) 10/12/25 01:35 Albumin 4.0 g/dL (3.5-5.2) 10/12/25 01:35 Globulin 3.0 g/dL (1.3-4.6) 10/12/25 01:35 Lipase 23 U/L (13-60) 10/12/25 01:35 HCG, Qual Negative (Negative) 10/12/25 01:35 Urine Color Yellow (Yellow) 10/12/25 01:56 Urine Appearance Cloudy (CLEAR) A 10/12/25 01:56 Urine pH 5.0 (5-7) 10/12/25 01:56 Ur Specific [place] 1.030 (1.005-1.030) 10/12/25 01:56 Urine Protein Trace (Negative) A 10/12/25 01:56 Urine Glucose (UA) Negative (Normal) 10/12/25 01:56 Urine Ketones Trace (Negative) 10/12/25 01:56 Urine Blood Negative (Negative) 10/12/25 01:56 Urine Nitrate Negative (Negative) 10/12/25 01:56 Urine Bilirubin Negative (Negative) 10/12/25 01:56 Urine Urobilinogen 1.0 mg/dL (Negative) 10/12/25 01:56 Ur Leukocyte Esterase Negative (Negative) 10/12/25 01:56 Urine RBC 0-2 /hpf (0-2) 10/12/25 01:56 Urine WBC 0-5 /hpf (0-5) 10/12/25 01:56 Ur Squamous Epith Cells 0-5 /hpf (0-5) 10/12/25 01:56 Amorphous Sediment Not Reportable 10/12/25 01:56 Urine Bacteria 1+ /hpf (NONE) H 10/12/25 01:56 Hyaline Casts 0.40 /lpf 10/12/25 01:56 Influenza A (PCR) Negative (Negative) 10/12/25 01:56 Influenza Type B (PCR) Negative (Negative) 10/12/25 01:56 RSV (PCR) Negative (Negative) 10/12/25 01:56 SARS-CoV-2 (PCR) Negative (Negative) 10/12/25 01:56 All radiology interpretation(s) finalized by discharge Discharge Plan Discharge Patient Disposition: Home Clinical Impression: Gastroenteritis Condition: Stable Prescriptions: New ondansetron 4 mg tablet,disintegrating 4 mg PO Q6H PRN (Reason: nausea and vomiting) Qty: 14 0RF No Action Zyrtec 10 mg capsule 10 mg PO DAILY PRN (Reason: Allergic Reaction) atenolol 50 mg tablet 50 mg PO DAILY Qty: 30 0RF hydrocodone-acetaminophen 5-325 mg tablet 1 tab PO Q6H PRN (Reason: pain) Qty: 14 0RF Discharge Orders: Discharge ED (Routine); Ordered 10/12/25 Ordered By: González Hager Referrals: Malcolm Howard FNP [Primary Care Provider] - 1-3 days Patient Instructions: Gastroenteritis (ED), Opioid Safety, Pain Management, Patient Portal & Jen Instructions Activity Restrictions/Additional Instructions: Follow a liquid diet for the next 24 hours. You may increase your diet as tolerated if no vomiting. Take nausea medication scheduled for the first 24 hours, then as needed following that. Return for problems. Call your doctor tomorrow for follow-up appointment. Print Language: Armenian Coding Level of Care Code ED Taxation Inspector for Della Magdaleno
[2025-10-12 02:11] LABS: Glucose Urine UA Negative (Normal); Nitrate Urine Negative (Negative); Specific Gravity, Urine 1.030 (1.005-1.030)
[2025-10-12 02:16] LABS: Add Urine Microscopic? YES
[2025-10-12 02:23] LABS: Alanine Aminotransferase 14 U/L (0-33)
[2025-10-12] MEDS: iohexol 350 mg/mL 500 mL Btl (per mL) IV (02:29)
[2025-10-12 02:31] VITALS: RESP 16; O2SAT 98
[2025-10-12] MEDS: ondansetron 2 mg/ML SDV 2 mL 4 MG IVP (02:31)
[2025-10-12] MEDS: morphine 4 mg/mL SDV 1 mL IVP (02:31)
[2025-10-12 02:37] LABS: Anion Gap 17.7 (5-19); Blood Urea Nitrogen 10 mg/dL (6-20); Calcium 9.0 mg/dL (8.5-10.5); Carbon Dioxide 20 mmol/L (22-29); Creatinine Clr Calc Pharmacy 149.0398; Globulin 3.0 g/dL (1.3-4.6); Glucose 131 mg/dL (65-115); Lipase 23 U/L (13-60); Osmolality Calculated 291 mOsm/kg (285-295); Total Protein 7.0 g/dL (6.6-8.7)
[2025-10-12 02:43] LABS: Respiratory Syncytial Virus Ce NEGATIVE (Negative); SARS-CoV-2 PCR NEGATIVE (Negative)
[2025-10-12 02:44] LABS: Aspartate Amino Transferase 12 U/L (0-32)
[2025-10-12 02:47] VITALS: BP 122/85; PULSE 76; O2SAT 98
[2025-10-12 03:16] VITALS: BP 133/66; PULSE 69; O2SAT 98
--- NOTE | 2025-10-12 03:19 | PC.NURSE ---
PER DR. SIMON PT FIT FOR DC AND DOES NOT NEED SECOND BAD OF IV FLUIDS.
== END 2025-10-12 03:23 | disposition home or self-care (01) ==
PROVIDERS: Emergency Provider Emergency Medicine; PCP Nurse Practitioner Family
DX: K52.9 Noninfective gastroenteritis and colitis, unspecified (principal); Z11.52 Encounter for screening for COVID-19
CPT/HCPCS: 36415; 74177; 80053; 81001; 83605; 83690; 84703; 85025; 86140; 87637; 96361; 96374; 96375; 99285; J1885; J2270; J2405; J7030